=== PATIENT | female | born 1995 | race Caucasian/White ===

== ENCOUNTER 2025-04-27 09:22 | Emergency (ER) | payer BC, SELFPAY ==
--- OUTSIDE RECORDS SUMMARY | 2025-03-11 08:00 | XMS_ITS | Encounter Summary ---
Author Organization [facility] Address [address] [place] [address] Care Team Providers Care Machine Molder Name Role Phone Melissa Cain Primary Care Provider [phone] Reason for Visit * Diagnostic Imaging (Routine) - Closed Specialty Diagnoses / Procedures Referred By Contact Referred To Contact Obstetrics and Gynecology Diagnoses First trimester Procedures US Ob Transvaginal Marce Huizar MD [address] [address] Phone: tel: fax: [facility] [address] [address] Phone: tel: fax: Referral ID Status Reason Start Date Expiration Date Visits Re quested Visits Authorized [id number] Closed 03/07/2025 06/06/2026 1 1 Encounter Details Date Type Department Care Team (Latest Contact Info) Description 03/11/2025 8:00 AM EDT Ancillary Procedure [facility] [address] [address] First trimester Social History Tobacco Use Types Packs/Day Years Used Date Smoking Tobacco: Never Smokeless Tobacco: Never Alcohol Use Standard Drinks/Week Comments Not Currently 0 (1 standard drink = 0.6 oz pur e alcohol) Estimated Date of Delivery Comme nts Yes 10/15/2025 Based on last me nstrual period of 01/08/2025 Sex and Gender Information Value Date Recorded Sex Assigned at Not on file Legal Sex Female 3:02 PM EDT Gender Identity Not on file Sexual Orientation Not on file documented as of this encounter Plan of Treatment Not on file documented as of this encounter Procedures Procedure Name Priority Date/Time Associated Diagnosis Comments US OB TRANSVAGINAL Routine 03/11/2025 8: 13 AM EDT First trimester documented in this encounter Results * US Ob Transvaginal (03/11/2025 8:13 AM EDT) Anatomical Region Laterality Modality Body Ultrasound 03/11/2025 8:58 AM EDT Narrative 03/11/2025 4:50 PM EDT PAT NAME: MIRTHA REYES MED REC#: [id number] DA: [id number] PAT GEND: F PAT TYPE: O EXAM VALERIE: [id number] REF PHYS ALENA MARCE Indication ======== Dating Comparison Studies There are no relevant prior studies to which this study is being compared Method ======= Voluson E6, Transvaginal ultrasound examination. View: Adequate view ========= [place] . Number of fetuses: 1 Single intrauterine present Dating ====== Method of dating: based on the LMP LMP on: 01/08/2025 GA by LMP 8 w + 6 d JEFFREY by LMP: 10/15/2025 Ultrasound examination on: 03/11/2025 GA by U/S based upon: CRL GA by U/S 8 w + 6 d JEFFREY by U/S: 10/15/2025 Assigned: based on the LMP, selected on 03/11/2025 Assigned GA 8 w + 6 d Assigned JEFFREY: 10/15/2025 length 280 d Biometry Standard FHR 184 bpm CRL 22.1 mm 8w 6d 65% [place] General Evaluation Cardiac activity present. Placenta Too early to evaluate. Amniotic fluid normal. [id number] TATA. Maternal Structures Uterus / Cervix Uterus: Visualized Cervix: Visualized Ovaries / Tubes / Adnexa Rt ovary: Visualized Rt ovary D1 21.9 mm Rt ovary D2 19.2 mm Rt ovary D3 15.2 mm Rt ovary Vol 3.3 cm Rt ovarian corpus luteum: visualized Lt ovary: Visualized Lt ovary D1 21.6 mm Lt ovary D2 10.8 mm Lt ovary D3 15.00 mm Lt ovary Vol 1.8 cm Impression ========= Single viable intrauterine with normal cardiac activity and biometry consistent with clinical dates Maintenance Shop Clerk: Kinga Villatoro RDMS Physician: Marce Huizar MD, FACOG Electronically signed by: Marce Huizar MD, FACOG at: 16:50 Procedure Note Marce Huizar MD - 03/11/2025 PAT NAME: MIRTHA REYES MED REC#: [id number] DA: [id number] PAT GEND: F PAT TYPE: O EXAM VALERIE: [id number] REF PHYS MARCE HUIZAR Indication ======== Dating Comparison Studies There are no relevant prior studies to which this study is beingcompared Method ======= Voluson E6, Transvaginal ultrasound examination. View: Adequate view ========= [place] . Number of fetuses: 1 Single intrauterine present Dating ====== Method of dating:based on the LMP LMP on:01/08/2025 GA by LMP8 w + 6 d JEFFREY by LMP:10/15/2025 Ultrasound examination on:03/11/2025 GA by U/S based upon:CRL GA by U/S8 w + 6 d JEFFREY by U/S:10/15/2025 Assigned:based on the LMP, selected on 03/11/2025 Assigned GA8 w + 6 d Assigned JEFFREY:10/15/2025 [id number] d Biometry Standard GKS871 bpm CRL22.1 mm 8w 6d 65% [place] General Evaluation Cardiac activity present. Placenta Too early to evaluate. Amniotic fluid normal. [id number] TATA. Maternal Structures Uterus / Cervix Uterus:Visualized Cervix:Visualized Ovaries / Tubes / Adnexa Rt ovary:Visualized Rt ovary D121.9 mm Rt ovary D219.2 mm Rt ovary D315.2 mm Rt ovary Vol3.3 cm Rt ovarian corpus luteum:visualized Lt ovary:Visualized Lt ovary D121.6 mm Lt ovary D210.8 mm Lt ovary D315.00 mm Lt ovary Vol1.8 cm Impression ========= Single viable intrauterine with normal cardiac activity andbiometry consistent with clinical dates Maintenance Shop Clerk: Kinga Villatoro RDNM Physician: Marce Huizar MD, FACOG Electronically signed by: Marce Huizar MD, FACOG at: 6:50 us Marce Huizar MD IMG US ORDERABLES Fin al Result documented in this encounter Visit Diagnoses Diagnosis First trimester state, incidental documented in this encounter Care Teams Machine Molder Relationship Specialty Start Date End Date Melissa Cain PA [address] [place] [address] DR [place], [place] [address] PCP - General Family Medicine 12/10/18 documented as of this encounter
--- OUTSIDE RECORDS SUMMARY | 2025-03-11 08:30 | XMS_ITS | Encounter Summary ---
Author Organization [facility] Address [address] [place] [address] Care Team Providers Care Veterinary Practitioner Name Role Phone Melissa Cain Primary Care Provider Reason for Visit * Reason Comments Initial Visit Encounter Details Date Type Department Care Team (Late st Contact Info) Description 03/11/2025 8:30 AM EDT Initial [facility] [address] [id number] Marce Huizar MD [address] [place] [address] GA: 8w6d Social History Tobacco Use Types Packs/Day Years Used Date Smoking Tobacco: Never Smokeless Tobacco: Never Tobacco Cessation:Counseling Given: Not Answered Alcohol Use Standard Drinks/Week Comments Not Currently [...] on file documented as of this encounter Last Filed Vital Signs Vital Sign Reading Time Taken Comments Blood Pressure 112/62 03/11/2025 8:43 AM EDT Pulse - - Temperature - - Respiratory Rate - - Oxygen Saturation - - Inhaled Oxygen Concentration - - Weight 104 kg (229 lb 3.2 oz) 03/11/2025 8:43 AM EDT Height - - Body Mass Index 39.34 12/10/2018 3:09 PM EDT documented in this encounter Progress Notes * Marce Huizar MD - 03/11/2025 8:30 AM EDT Images from the original note were not included. Initial ob visit CC- Here for care of Mirtha Soriano is a 29 y.o. female, , who presents for her first obstetrical visit. Patient's last menstrual period was 01/08/2025.. Her JEFFREY is 10/15/2025, by Last Menstrual Period. Current GA is 8w6d. Initial positive test date : 02/08/25, UPT Her periods are every 28 days. Prior obstetric issues: N/A Patient's past medical history is significant for: none. Family history of genetic issues (includes FOB): unknown Prior infections concerning in (Rash, fever in last 2 weeks): No Varicella Hx - vaccinated Prior testing for Cystic Fibrosis Carrier or Sickle Cell Trait- no Prepregnancy BMI - Body mass index is 39.34 kg/m??. History of STD: no Hx of HSV for patient or partner: no Ultrasound Today: yes OB History Para Term AB Living 2 1 SAB IAB Ectopic Molar Multiple Live Births # Outcome Date GA Lbr Mukesh/2nd Weight Sex Type Anes PTL Lv 2 Current 1 AB Additional Pertinent History Last Pap : before covid Result: negative HPV: unknown Last Completed Pap Smear This patient has no relevant Health Maintenance data. History of abnormal Pap smear: no Family history of uterine, colon, breast, or ovarian cancer: no Feelings of Anxiety or Depression: no Tobacco Usage?: No Alcohol/Drug Use?: NO Over the age of 35 at delivery: no Genetic Screening: desires to discuss with provider Flu Status: Declines PMH Current Outpatient Medications: GUMMY VITAMIN, Chew 1 each Daily., Disp: , Rfl: History reviewed. No pertinent past medical history. Past Surgical History: Procedure Laterality Date URETHRA SURGERY expanded Review of Systems Review of Systems Constitutional: Negative. HENT: Negative. Eyes: Negative. Respiratory: Negative. Cardiovascular: Negative. Gastrointestinal: Negative. Endocrine: Negative. Genitourinary: Negative. Musculoskeletal: Negative. Skin: Negative. Allergic/Immunologic: Negative. Neurological: Negative. Hematological: Negative. Psychiatric/Behavioral: Negative. Patient Reports: occasional headaches, low ab cramping and low back pain, severe acid reflux and heart burn. Patient Denies:excessive nausea , excessive vomiting, and vaginal bleeding All systems reviewed and otherwise normal. I have reviewed and agree with the HPI, ROS, and historical information as entered above. Marce Huizar MD BP 112/62 Wt 104 kg (229 lb 3.2 oz) LMP 01/08/2025 BMI 39.34 kg/m?? The additional following portions of the patient's history were reviewed and updated as appropriate: allergies, current medications, past family history, past medical history, past social history, past surgical history, and problem list. Physical Exam General: well developed; well nourished no acute distress mentation appropriate obese - Body mass index is 39.34 kg/m??. Chest/Respiratory: No labored breathing, normal respiratory effort, normal appearance, no respiratory noises noted Heart: not examined Thyroid: normal to inspection and palpation Breasts: Not performed. Abdomen: soft, non-tender; no masses no umbilical or inguinal hernias are present no hepato-splenomegaly Pelvis: Not performed. Assessment and Plan Problem List Items Addressed This Visit 8 weeks gestation of Relevant Orders POC Urinalysis Dipstick (Completed) Obstetric Panel HIV-1 / O / 2 Ag / Antibody Urine Culture - Urine, Urine, Clean Catch Urinalysis With Microscopic - Urine, Clean Catch Chlamydia trachomatis, Neisseria gonorrhoeae, PCR - Urine, Urine, Clean Catch Urine Drug Screen - Urine, Clean Catch Multigravida in first trimester - Primary Relevant Orders POC Urinalysis Dipstick (Completed) Obstetric Panel HIV-1 / O / 2 Ag / Antibody Urine Culture - Urine, Urine, Clean Catch Urinalysis With Microscopic - Urine, Clean Catch Chlamydia trachomatis, Neisseria gonorrhoeae, PCR - Urine, Urine, Clean Catch Urine Drug Screen - Urine, Clean Catch at 8w6d Reviewed routine care with the office and educational materials given Discussed options for genetic testing including first trimester nuchal translucency screen, geneticdisease carrier testing, quadruple screen, and NIPT Discontinue the use of all non-medicinal drugs and chemicals Nausea/Vomiting - she does not desire medications at this time. Discussed conservative ways to helpwith nausea. Patient is on vitamins Activity recommendation : 150 minutes/week of moderate intensity aerobic activity unless we limit for bleeding, hypertension or other complication discussed baby aspirin from 12 weeks to delivery for prevention of preeclampsia Return in about 4 weeks (around 04/08/2025) for Next scheduled follow up. Marce Huizar MD 03/11/2025 documented in this encounter Plan of Treatment Not on file documented as of this encounter Procedures Procedure Name Priority Date/Time Associated Diagnosis Comments CHLAMYDIA TRACHOMATIS, NEISSERIA GONORRHOEAE, PCR Routine 03/11/2025 9:25 AM EDT Multigravida in first trimester 8 weeks gestation of ~MICROSCOPIC EXAMINATION Routine 03/11/2025 9:25 AM EDT HIV-1/O/2 ANTIGEN/ANTIBODY Routine 03/11/2025 9:25 AM EDT Multigravida in first trimester 8 weeks gestation of URINE DRUG SCREEN Routine 03/11/2025 9:2 5 AM EDT Multigravida in first trimester 8 weeks gestation of RUBEOLA ANTIBODY IGG Routine 03/11/2025 9:25 AM EDT OBSTETRIC PANEL Routine 03/11/2025 9:25 AM EDT Multigravida in first trimester 8 weeks gestation of URINALYSIS AND MICROSCOPIC Routine 03/11/2025 9:25 AM EDT Multigravida in first trimester 8 weeks gestation of URINE CULTURE Routine 03/11/2025 9:25 AM EDT Multigravida in first trimester 8 weeks gestation of POCT URINALYSIS DIPSTICK, MANUAL Routine 03/11/2025 8:59 AM EDT Multigravida in first trimester 8 weeks gestation of documented in this encounter Results * Rubeola Antibody IgG (03/11/2025 9:25 AM EDT) Rubeola IgG 236.0 Immune >16.4 AU/mL [facility] Comment: Negative <13.5 Equivocal 13.5 - 16.4 Positive >16.4 Presence of antibodies to Rubeola is presumptive evidence of immunity except when acute infection is suspected. 03/11/2025 9:25 AM EDT 03/11/2025 Narrative [facility] (AMBULATORY) - 03/12/2025 8:11 AM EDT Performed at: [address] [place] [id number] Rn Anesthetist: Nitin Lind PhD, Phone: [phone] Marce Huizar MD LAB BLOOD ORDERABLES Final Result [facility] (AMBULATORY) [address] [place] [address], [facility] [address] [place] [address], * (ABNORMAL) Microscopic Examination - (03/11/2025 9:25 AM EDT) Pathologist [facility] WBC, UA 0-2 /HPF [facility] Comment:REFERENCE RANGE: Non e Seen, 0-2 RBC, UA 0-2 /HPF [facility] Comment:REFERENCE RANGE: Non e Seen, 0-2 Epithelial Cells (non renal) 3-6(A) /HPF [facility] Comment:REFERENCE RANGE: Non e Seen, 0-2 Cast Type Comment [facility] Comment:HYALINE CASTS, UA No ne Seen /LPF None Seen N Bacteria, UA Comment None Seen /HPF [facility] Comment:None Seen 03/11/2025 9:25 AM EDT 03/11/2025 Narrative [facility] ([facility]) - 03/12/2025 3:35 AM EDT Performed at: [address] [place] [id number] Rn Anesthetist: Maged Evangelista MD, Phone: [phone] us Marce Huizar MD URINE ORDERABLES Lindsay clarke Result [facility] (AMBULATORY) [address] [place] [address], [place] [phone] [facility] [address] [place] [address], [place] [phone] * Urine Drug Screen - Urine, Clean Catch (03/11/2025 9:25 AM EDT) Pathologist [facility] Amphetamine, Urine Qual Negative Cutoff=10 00 ng/mL [facility] Barbiturates Screen, Urine Negative Cutoff=20 0 ng/mL [facility] Benzodiazepine Screen, Urine Negative Cutoff=20 0 ng/mL [facility] THC Screen, Urine Negative Cutoff=20 ng/mL [facility] Cocaine Screen, Urine Negative Cutoff=30 0 ng/mL [facility] Opiate Screen, Urine Negative Cutoff=30 0 ng/mL [facility] Comment:Opiate test includes Codeine, Morphine, Hydromorphone, Hydrocodone. Oxycodone/Oxymorph one, Urine Negative Cutoff=10 0 ng/mL [facility] Comment:Test includes Oxycod one and Oxymorphone Phencyclidine (PCP), Urine Negative Cutoff=25 ng/mL [facility] Methadone Screen, Urine Negative Cutoff=30 0 ng/mL [facility] Propoxyphene Screen Negative Cutoff=30 0 ng/mL [facility] Creatinine, Urine 146.9 20.0 - 300.0 mg/dL [facility] pH, UA 6.1 4.5 - 8.9 [facility] Please note Comment [facility] Comment: This assay provides a preliminary unconfirmed analytical test result that may be suitable for clinical management of patients in certain situations. Drug-test results should be interpreted in the context of clinical information. Patient metabolic variables, specific drug chemistry, and specimen characteristics can affect test outcome. Technical consultation is available if a test result is inconsistent with an expected outcome. Email: [email or web address] Urine Urine specimen obtained by clean catch procedure / Unknown 03/11/2025 9:25 AM EDT 03/11/2025 Narrative [facility] (AMBULATORY) - 03/12/2025 8:35 PM EDT Performed at: [place] [address] [place], [place] [id number] Rn Anesthetist: Komal Arceo PhD, Phone: [phone] Marce Huizar MD URINE ORDERABLES Lindsay l Result Performing Organization Address [facility]/ZIP Co de Phone Number [facility] [address] [place] [address], [facility] [address] [place] [address], * Chlamydia trachomatis, Neisseria gonorrhoeae, PCR - Urine, Urine, Clean Catch (03/11/2025 9:25 AM EDT) [facility] Chlamydia trachomatis, BILLIE Negative Negative [facility] Neisseria gonorrhoeae, BILLIE Negative Negative [facility] Urine Urine specimen obtained by clean catch procedure / Unknown 03/11/2025 9:25 AM EDT 03/11/2025 Comment: CD- [id number] [facility] - 03/13/2025 8:11 AM EDT Performed at: [address] [place] [id number] Rn Anesthetist: Erum Montes De Oca MD, Phone: [phone] Marce Huizar MD MICROBIOLOGY - GENERA L ORDERABLES Final Result Performing Organization Address [facility] Co de Phone Number [facility] [address] [place] [address], [place] [phone] [facility] [address] [place] [address], [place] [phone] * (ABNORMAL) Urinalysis With Microscopic - Urine, Clean Catch (03/11/2025 9:25 AM EDT) Pathologist [facility] Specific [place], UA 1.021 1.005 - 1.030 [facility] pH, UA 6.5 5.0 - 8.0 [facility] Color, UA Yellow [facility] Comment:REFERENCE RANGE: Yel low, Straw Appearance, UA Clear Clear [facility] Leukocytes, UA Trace(A) Negative [facility] Protein Negative Negative [facility] Glucose, UA Negative Negative [facility] Ketones Negative Negative [facility] Blood, UA Negative Negative [facility] Bilirubin, UA Negative Negative [facility] Urobilinogen, UA Comment [facility] Comment: 0.2 E.U./dL REFERENCE RANGE: 0.2 - 1.0 E.U./dL Nitrite, UA Negative Negative [facility] Urine Urine specimen obtained by clean catch procedure / Unknown 03/11/2025 9:25 AM EDT 03/11/2025 Narrative [facility] ([facility]) - 03/12/2025 3:35 AM EDT Performed at: [address] [place] [id number] Rn Anesthetist: Maged Evangelista MD, Phone: [phone] Marce Huizar MD URINE ORDERABLES Lindsay l Result [facility] (AMBULATORY) [address] [place] [address], [facility] [address] [place] [address], [place] [phone] * Urine Culture - Urine, Urine, Clean Catch (03/11/2025 9:25 AM EDT) [facility] Urine Culture Final report [facility] Result 1 No growth [facility] Urine Urine specimen obtained by clean catch procedure / Unknown 03/11/2025 9:25 AM EDT 03/11/2025 Comment:MATHIEU CD- [id number] Narrative [facility] ([facility]) - 03/13/2025 3:35 AM EDT Performed at: [address] [place] [id number] Rn Anesthetist: Nitin Lind PhD, Phone: [phone] Marce Huizar MD MICROBIOLOGY - GENERA L ORDERABLES Final Result [facility] (AMBULATORY) [address] [place] [address], [place] [phone] [facility] [address] [place] [address], [place] [phone] * HIV-1 / O / 2 Ag / Antibody (03/11/2025 9:25 AM EDT) [facility] HIV Screen 4th Gen w/RFX (Reference) Non Reactive Non Reactive [facility] Comment: HIV-1/HIV-2 antibodies and HIV-1 p24 antigen were NOT detected. There is no laboratory evidence of HIV infection. HIV Negative Blood 03/11/2025 9:25 AM EDT 03/11/2025 Narrative [facility] - 03/12/2025 7:09 AM EDT Performed at: [facility] [address] [place] [id number] Rn Anesthetist: Nitin Lind PhD, Phone: [phone] Marce Huizar MD LAB BLOOD ORDERABLES Final Result Performing Organization Address City/[facility] Co de Phone Number [facility] (AMBULATORY) [address] [place] [address], [place] [phone] [facility] [address] [place] [address], [place] [phone] * (ABNORMAL) Obstetric Panel (03/11/2025 9:25 AM EDT) [facility] Hepatitis B Surface Ag Negative Negative [facility] Hep C Virus Ab Non Reactive Non Reactive [facility] Comment: HCV antibody alone does not differentiate between previously resolved infection and active infection. Equivocal and Reactive HCV antibody results should be followed up with an HCV RNA test to support the diagnosis of active HCV infection. RPR Non Reactive Non Reactive [facility] Rubella Antibodies, IgG 3.77 Immune >0.99 index [facility] Comment: Non-immune <0.90 Equivocal 0.90 - 0.99 Immune >0.99 ABO Type O [facility] Rh Factor Negative [facility] Comment: Please note: Prior records for this patient's ABO / Rh type are not available for additional verification. Antibody Screen Negative Negative [facility] WBC 10.9(H) 3.4 - 10.8 x10E3/uL [facility] RBC 4.26 3.77 - 5.28 x10E6/uL [facility] Hemoglobin 13.3 11.1 - 15.9 g/dL [facility] Hematocrit 40.4 34.0 - 46.6 % [facility] MCV 95 79 - 97 fL [facility] MCH 31.2 26.6 - 33.0 pg [facility] MCHC 32.9 31.5 - 35.7 g/dL [facility] RDW 12.4 11.7 - 15.4 % [facility] Platelets 284 150 - 450 x10E3/uL [facility] Neutrophil Rel % 67 Not Estab. % [facility] Lymphocyte Rel % 23 Not Estab. % [facility] Monocyte Rel % 7 Not Estab. % [facility] Eosinophil Rel % 1 Not Estab. % [facility] Basophil Rel % 1 Not Estab. % [facility] Neutrophils Absolute 7.4(H) 1.4 - 7.0 x10E3/uL [facility] Lymphocytes Absolute 2.5 0.7 - 3.1 x10E3/uL [facility] Monocytes Absolute 0.7 0.1 - 0.9 x10E3/uL [facility] Eosinophils Absolute 0.1 0.0 - 0.4 x10E3/uL [facility] Basophils Absolute 0.1 0.0 - 0.2 x10E3/uL [facility] Immature Granulocyte Rel % 1 Not Estab. % [facility] Immature Grans Absolute 0.1 0.0 - 0.1 x10E3/uL [facility] Blood 03/11/2025 9:25 AM EDT 03/11/2025 Narrative [facility] ([facility]) - 03/12/2025 8:11 AM EDT Performed at: [facility] [id number] Rn Anesthetist: Nitin Lind PhD, Phone: [phone] Marce Huizar MD LAB BLOOD ORDERABLES Final Result [facility] ([facility]) [address] [place] [address], [place] [phone] [facility] [address] [place] [address], [place] [phone] * POC Urinalysis Dipstick (03/11/2025 8:59 AM EDT) Color Yellow Yellow, Straw, Dark Yellow, Rufina [facility] Clarity, UA Clear Clear [facility] Glucose, UA Negative Negative mg/dL [facility] Bilirubin Negative Negative [facility] Ketones, UA Negative Negative [facility] Specific [place] 1.020 1.005 - 1.030 [facility] Blood, UA Negative Negative [facility] pH, Urine 6.0 5.0 - 8.0 [facility] Protein, POC Negative Negative mg/dL [facility] Urobilinogen, UA 0.2 E.U./dL Normal, 0.2 E.U./dL [facility] Leukocytes Negative Negative [facility] Nitrite, UA Negative Negative [facility] Urine 03/11/2025 8:59 AM EDT Marce Huizar MD POINT OF CARE TEST OR DERABLES Final Result [facility]
[address] [place] [address], [place] [phone] documented in this encounter Visit Diagnoses Diagnosis Multigravida in first trimester- Primary 8 weeks gestation of documented in this encounter Care Teams Veterinary Practitioner Relationship Specialty Start Date End Date Melissa Cain PA [facility] [address] PCP - General Family Medicine 12/10/18 documented as of this encounter
--- OUTSIDE RECORDS SUMMARY | 2025-04-02 15:00 | XMS_ITS | Encounter Summary ---
Author Organization [facility] Address [address] [place] [address] Care Team Providers Care Clinique Counter Manager Name Role Phone Pcp, No Primary Care Provider Unavailabl e Reason for Referral * Imaging (Routine) - Authorized Specialty Diagnoses / Procedures Referred By Scarlett mejia Referred To Contact Diagnoses , unspecified gestational age Procedures OB US 14+ Weeks Anatomy Scan John Wilkes MD [address] [place] [address] Phone: tel: fax: Referral ID Status Reason Start Date Expiration Date V isits Requested Visits Authorized [id number] Authorized 04/02/2025 10/02/2026 1 1 * Imaging (Routine) - Closed Specialty Diagnoses / Procedures Referred By Scarlett mejia Referred To Contact Diagnoses , unspecified gestational age Procedures OB US Nuchal Translucency John Wilkes MD [address] [place] [address] Phone: tel: fax: Referral ID Status Reason Start Date Expiration Date Visits Re quested Visits Authorized [id number] Closed 04/02/2025 10/02/2026 1 1 Reason for Visit * Reason Comments Initial Visit [facility] from [facility]. Had initial there. 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 Doing well, feels good, mood is good. Has had labs. Desires NIPT test, we can do that today. Encounter Details Date Type Department Care Team (Late st Contact Info) Description 04/02/2025 3:00 PM EDT Initial Obstetrics & Gynecology [address] [place] [address] John Wilkse MD [address] [place] [address] GA: 12w0d Social History Tobacco Use Types Packs/Day Years Used Date Smoking Tobacco: Never Smokeless Tobacco: Never Tobacco Cessation:Counseling Given: Not Answered Alcohol Use Standard Drinks/Week Comments Not Currently 1 (1 standard drink = 0.6 oz pur e alcohol) PHQ-2 Answer Date Recorded Patient Health Questionnaire-2 Score 0 04/02/2025 PHQ-9 Answer Date Recorded Patient Health Questionnaire-9 Score 0 04/02/2025 Estimated Date of Delivery Comme nts Yes 10/15/2025 Based on last me nstrual period of 01/08/2025 (Exact Date) Sex and Gender Information Value Date Recorded Sex Assigned at Not on file Legal Sex Female 3:16 PM EDT Gender Identity Not on file Sexual Orientation Not on file documented as of this encounter Last Filed Vital Signs Vital Sign Reading Time Taken Comments Blood Pressure 106/75 04/02/2025 3:24 PM EDT Pulse 93 04/02/2025 3:24 PM EDT Temperature 36.8 C (98.2 F) 04/02/2025 3:24 PM EDT Respiratory Rate 16 04/02/2025 3:24 PM EDT Oxygen Saturation 98% 04/02/2025 3:24 PM EDT Inhaled Oxygen Concentration - - Weight 98.2 kg (216 lb 7.9 oz) 04/02/2025 3:24 P M EDT Height 162.6 cm (5' 4 ) 04/02/2025 3:24 PM EDT Body Mass Index 37.16 04/02/2025 3:24 PM EDT documented in this encounter Functional Status * Over the past 2 weeks, how often have you been bothered by any of the following problems? Question Answer Date of Assessment Author Little interest or pleasure in doing things Not at all 04/02/2025 3:21 PM EDT Vj Hernandez Feeling down, depressed, or hopeless Not at all 04/02/2025 3:21 PM EDT Vj Hernandez Patient Health Questionnaire -2 Score 0 04/02/2025 3:21 PM EDT Vj Hernandez * Question Answer Date of Assessment Author Trouble falling or staying a sleep, or sleeping too much Not at all 04/02/2025 3:21 PM EDT Vj Hernandez Feeling tired or having monique le energy Not at all 04/02/2025 3:21 PM EDT Vj Hernandez Poor appetite or overeating Not at all 04/02/2025 3: 21 PM EDT Vj Hernandez Feeling bad about yourself - or that you are a failure or have let yourself or your family down Not at all 04/02/2025 3:21 PM EDT Eduardo Hernandez Trouble concentrating on thi ngs, such as reading the newspaper or watching television Not at all 04/02/2025 3:21 PM EDT Vj Hernandez Moving or speaking so slowly that other people could have noticed? Or the opposite - being so fidgety or restless that you have been moving around a lot more than usual. Not at all 04/02/2025 3:21 PM EDT Vj Hernandez Thoughts that you would be b narayan off or hurting yourself in some way Not at all 04/02/2025 3:21 PM EDT Vj Hernandez Patient Health Questionnaire -9 Score 0 04/02/2025 3:21 PM EDT Vj Hernandez * How difficult have these problems made it for you to do your work, take care of things at home, or get along with other people? Answer Date of Assessment Author Not difficult at all 04/02/2025 3:21 PM EDT Vj Segura documented as of this encounter Miscellaneous Notes * Progress Notes - John Wilkes MD - 04/02/2025 3:00 PM EDT Obstetrics Initial Visit Chief Complaint Patient presents with Initial Visit [facility]ERSON from [facility]. Had initial there. Works for [employer] at the [employer] office, would prefer to come here. Doing well, feels good, mood is good. Has had labs. Desires NIPT test, we can do that today. Subjective Mirtha Soriano is a 29 y.o. at 12w0d (JEFFREY 10/15/25 by LMP=8w OSH US) who presents for an initial visit/[facility]ERSON from [facility]. This is planned and is desired. Denies abdominal pain, vaginal bleeding, or leaking of fluid. Denies nausea or vomiting. Having worsening GERD -- used to take omeprazole. Tums not helping. Reports she was told to start bASA at 12 weeks by [facility] provider for her freckles & family h/o red hair. Obstetric History: OB History Para Term AB Living 2 1 SAB IAB Ectopic Multiple Live Births # Outcome Date GA Lbr Mukesh/2nd Weight Sex Type Anes PTL Lv 2 Current 1 AB Gynecology History Denies history of STI including chlamydia, gonorrhea, herpes, syphilis., Last pap smear >5 years(no result available). Past Medical History: Past Medical History[1] Past Surgical History: Surgical History[2] Family History: Family History[3] Social History: Social History[4] Review of Systems Review of Systems Constitutional: Negative. HENT: Negative. Eyes: Negative. Respiratory: Negative. Cardiovascular: Negative. Gastrointestinal: Negative for abdominal pain, constipation, diarrhea, nausea and vomiting. Endocrine: Negative. Genitourinary: Negative for difficulty urinating, dysuria, menstrual problem, pelvic pain, vaginal bleeding, vaginal discharge and vaginal pain. Neurological: Negative. Psychiatric/Behavioral: Negative. Objective Physical Exam Weight: 98.2 kg (216 lb 7.9 oz) Pre- Weight: Pregravid weight not on file Expected Total Weight Gain: Could not be calculated Pregravid BMI: Could not be calculated BP: 106/75 Heart Rate: 164 Physical Exam Constitutional: General: She is not in acute distress. Appearance: Normal appearance. She is not ill-appearing. Genitourinary: Genitourinary Comments: Deferred. HENT: Head: Normocephalic and atraumatic. Nose: Nose normal. Mouth/Throat: Mouth: Mucous membranes are moist. Eyes: Extraocular Movements: Extraocular movements intact. Cardiovascular: Rate and Rhythm: Normal rate. Pulmonary: Effort: Pulmonary effort is normal. No respiratory distress. Abdominal: General: There is no distension. Palpations: Abdomen is soft. Musculoskeletal: General: Normal range of motion. Cervical back: Normal range of motion. Neurological: General: No focal deficit present. Mental Status: She is alert and oriented to person, place, and time. Skin: General: Skin is warm and dry. Psychiatric: Mood and Affect: Mood normal. Behavior: Behavior normal. Vitals and nursing note reviewed. Imaging: Bedside transabdominal ultrasound done: SIUP with FHR 164 bpm. Labs: PNL reviewed in Care Everywhere & imported into Results Console -- missing gonorrhea, chlamydiascreen + urine culture - obtained today with pt consent. Assessment/Plan 29 y.o. at 12w0d dated by LMP=8w US for a new OB visit. Assessment & Plan 12 weeks gestation of , unspecified gestational age Orders: OB US < 14 Weeks Early; Future PANORAMA TEST [facility] Urine Culture Neisseria gonorrhea DNA by PCR Chlamydia trachomatis DNA by PCR OB US Nuchal Translucency; Future OB US 14+ Weeks Anatomy Scan; Future Gastroesophageal reflux disease, unspecified whether esophagitis present Orders: pantoprazole (Protonix) 40 MG EC tablet; Take 1 tablet by mouth daily before breakfast. Do not crush, chew, or split. Obesity (BMI 30-39.9) labs reviewed in Care Everywhere: O NEG // Rubella Immune // otherwise WNL Urine G/C, Urine culture today. NEEDS PAP Ultrasounds: Dated by LMP=8w US. Discussed NT US - pt desires, ordered. Anatomy US at 20w Genetic Screening: Patient desires NIPT, drawn today. Immunizations: Discuss Tdap, flu, RSV recommendations next visit! Continue vitamins. Rx Pantoprazole for persistent GERD. New OB backpack & education given. Reviewed precautions to call or present for evaluation including: refractory nausea/vomiting, persistent severe abdominal pain, bright red vaginal bleeding similar to a period, or fever >101F. NT US ordered. Only 1 known risk factor for pre-eclampsia (BMI 30-39). bASA not strictly indicated for prevention of pre-E in pts with only single moderate RF for pre-E -- however, discussed R/B with pt. OK to start if she desires. RTC: 2 weeks for NT US screening + PNC A total of 41 minutes was spent on this visit with at least more than 50% of the encounter spent incounseling and/or coordinating care including reviewing previous notes, counseling the patient on their identified issues as indicated in the note, discussing previous and/or ordered tests or imaging, prescribing/refilling medications, and documenting the findings in this note, as well as laying out a specific plan of action for this patient. John Wilkes MD Obstetrics & Gynecology [1] Past Medical History: Diagnosis Date Migraine [2] History reviewed. No pertinent surgical history. [3] Family History Problem Relation Name Age of Onset Arthritis Father Si Christie 50 - 59 Diabetes Maternal Grandfather Si Christie [4] Social History Socioeconomic History Marital status: Single Years of education: [employer] office [employer]. Tobacco Use Smoking status: Never Smokeless tobacco: Never Substance and Sexual Activity Alcohol use: Not Currently Alcohol/week: 1.0 standard drink of alcohol Types: 1 Glasses of wine per week Drug use: Never Sexual activity: Not Currently Partners: Male control/protection: None documented in this encounter Plan of Treatment Upcoming Encounters Date Type Department Care Team (Late st Contact Info) Description 05/05/2025 9:20 AM EDT Routine Obstetrics & Gynecology [address] [place] [address] John Wilkes MD [address] [place] [address] 05/28/2025 1:40 PM EST Routine Obstetrics & Gynecology [address] [place] [address] John Wilkes MD [address] [place] [address] 05/28/2025 1:50 PM EST Appointment [facility] Ultrasound [address] [place] [address] Pending Results Name Type Priority Associated Diagnoses Date /Time PANORAMA TEST Lab Routine , unspecified gestational age 0904/02/2025 4:22 PM EDT [facility] Lab Routine , unspecified gestational age 0904/02/2025 4:22 PM EDT Scheduled Orders Name Type Priority Associated Diagnoses Orde r Schedule OB US 14+ Weeks Anatomy Scan Imaging Routine , unspecified gestational age Expected: 05/30/2025 (Approximate), Expires: 10/04/2026 documented as of this encounter Procedures Procedure Name Priority Date/Time Associated Diagnosis Comments CHLAMYDIA TRACHOMATIS DNA BY PCR Routine 04/02/2025 3:52 PM EDT , unspecified gestational age NEISSERIA GONORRHEA DNA BY PCR Routine 04/02/2025 3:52 PM EDT , unspecified gestational age URINE CULTURE Routine 04/02/2025 3:52 PM EDT , unspecified gestational age HIV 1/2 ANTIBODY/ANTIGEN SCREEN WITH REFLEX TO HIV I/II DIFFERENTIATION Routine 03/11/2025 HEPATITIS C ANTIBODY W/REFLEX TO HCV QUANT PCR Routine 03/11/2025 DRUG ABUSE SCREEN, URINE Routine 03/11/2025 ABO/RH Routine 03/11/2025 RUBELLA ANTIBODY IGG Routine 03/11/2025 RPR WITH REFLEX TO TITER (THOSE WITH KNOWN SYPHILIS) Routine 03/11/2025 HEPATITIS B SURFACE ANTIGEN Routine 03/11/2025 PLATELET COUNT, BLOOD Routine 03/11/2025 HEMOGLOBIN Routine 03/11/2025 HEMATOCRIT, BLOOD Routine 03/11/2025 ANTIBODY SCREEN Routine 03/11/2025 documented in this encounter Results * OB US Nuchal Translucency (04/14/2025 11:31 AM EDT) Anatomical Region Laterality Modality Ultrasound 04/14/2025 11:1 2 AM EDT Impressions 04/16/2025 8:41 AM EDT The OB Ultrasound you requested has been resulted. Please navigate to the Imaging tab in [email or web address] for review. This message has been generated by the interface. Narrative Procedure Note Frantz Willson MD - 04/16/2025 IMPRESSION: The OB Ultrasound you requested has been resulted. Please navigate to theImaging tab in [email or web address] for review. This message has been generated by theinterface. us John Wilkes MD IMG OB US PROCEDURES Final Res ult * Chlamydia trachomatis DNA by PCR (04/02/2025 3:52 PM EDT) Chlamydia trachomatis DNA PCR Result Not Detected Not Detected 04/03/2025 4:21 PM EDT [facility] Urine Urine specimen obtained by clean catch procedure / Unknown Non-blood Collection / Unknown 04/02/2025 3:52 PM EDT 04/02/2025 6:47 PM EDT Narrative [facility] - 04/03/2025 4:21 PM EDT This test is performed by the Sennari m2000 instrument for Real Time PCR C. trachomatis and N. gonorrhea. This test is FDA approved for use with endocervical, vaginal, and urine specimens. This test is used for clinical purposes. It should not be regarded as invesigational or for research. The [facility] Clinical Microbiology Laboratory is certified under the Clinical Laboratory Improvement Amendments of 1988 (CLIA-88) as qualified to perform high complexity clinical laboratory testing. us John Wilkes MD LAB MICROBIOLOGY - GENERAL ORD ERABLES Final Result Performing Organization Address City/[facility]/ZIP Co de Phone Number [facility] [address] [place] [address] * Neisseria gonorrhea DNA by PCR (04/02/2025 3:52 PM EDT) Neisseria gonorrhea DNA PCR Result Not Detected Not Detected. 04/03/2025 4:21 PM EDT [facility] Urine Urine specimen obtained by clean catch procedure / Unknown Non-blood Collection / Unknown 04/02/2025 3:52 PM EDT 04/02/2025 6:47 PM EDT Narrative [facility] - 04/03/2025 4:21 PM EDT This test is performed by the Glisten instrument for Real Time PCR C. trachomatis and N. gonorrhea. This test is FDA approved for use with endocervical, vaginal, and urine specimens. This test is used for clinical purposes. It should not be regarded as invesigational or for research. The [facility] Clinical Microbiology Laboratory is certified under the Clinical Laboratory Improvement Amendments of 1988 (CLIA-88) as qualified to perform high complexity clinical laboratory testing. us John Wilkes MD LAB MICROBIOLOGY - GENERAL ORD ERABLES Final Result Performing Organization Address [facility] Co de Phone Number [facility] [address] [place] [address] * Urine Culture (04/02/2025 3:52 PM EDT) Culture <10,000 CFU/mL Mixed urogenital, fecal, or skin pita present. 04/03/2025 2:07 PM EDT [facility] Urine Urine specimen obtained by clean catch procedure / Unknown Non-blood Collection / Unknown 04/02/2025 3:52 PM EDT 04/02/2025 6:48 PM EDT us John Wilkes MD LAB MICROBIOLOGY - GENERAL ORD ERABLES Final Result Performing Organization Address City/[facility]/ZIP Co de Phone Number [facility] [address] [place] [address] * OB US < 14 Weeks Early (04/02/2025 3:28 PM EDT) Anatomical Region Laterality Modality Body Ultrasound 04/07/2025 12:1 2 PM EDT Impressions 04/07/2025 12:16 PM EDT The OB Ultrasound you requested has been resulted. Please navigate to the Imaging tab in [email or web address] for review. This message has been generated by the interface. Narrative Procedure Note John Wilkes MD - 04/07/2025 IMPRESSION: The OB Ultrasound you requested has been resulted. Please navigate to theImaging tab in [email or web address] for review. This message has been generated by theinterface. Result [facility] John Wilkes MD IMG OB US PROCEDURES Final Res ult * Drug Abuse Screen, Urine (03/11/2025) Pathologist [facility] Amphetamine Screen Urine Negative Cutoff: 500 ng/mL Urine Urine specimen obtained by clean catch procedure / Unknown Result [facility] Provider LAB URINE ORDERABLES Final R esult * HIV 1 & 2 Antibody/Antigen Screen (03/11/2025) Pathologist [facility] External HIV 1/2 Ab/Ag None Detected Blood Venous blood specimen / Unknown Result [facility] LAB BLOOD ORDERABLES Final R esult * Rubella Antibody IgG (03/11/2025) Pathologist [facility] External Rubella IGG Quantitation Positive Blood Venous blood specimen / Unknown Result [facility] Provider LAB BLOOD ORDERABLES Final R esult * RPR With Reflex to Titer (Those With Known Syphilis) (03/11/2025) [facility] Rapid Plasma Reagin Nonreactive Non Reactive Blood Venous blood specimen / Unknown us Historical Provider LAB BLOOD ORDERABLES Final R esult * Hepatitis B Surface Antigen (03/11/2025) External Hepatitis B Surface Antigen (HBSAg) non reactive Blood Venous blood specimen / Unknown Result [facility] LAB BLOOD ORDERABLES Final R esult * Hepatitis C Antibody w/Reflex to HCV Quant PCR (03/11/2025) Hepatitis C Antibody Negative Negative Blood Venous blood specimen / Unknown Result [facility] LAB BLOOD ORDERABLES Final R esult * ABO/Rh (03/11/2025) ABO Grouping O External Rh Factor Negative Blood Venous blood specimen / Unknown Result [facility] LAB BLOOD BANK TEST ORDERABL ES Final Result * Platelet Count, Blood (03/11/2025) External Platelet Count (Plt) 284 Blood Venous blood specimen / Unknown Result [facility] LAB BLOOD ORDERABLES Final R esult * Hemoglobin, Blood (03/11/2025) External Hemoglobin (Hgb) 13.30 Blood Venous blood specimen / Unknown Result [facility] LAB BLOOD ORDERABLES Final R esult * Hematocrit, Blood (03/11/2025) External Hematocrit (Hct) 40.4 Blood Venous blood specimen / Unknown Result [facility] LAB BLOOD ORDERABLES Final R esult * Antibody Screen (03/11/2025) External Antibody Screen Negative Blood Venous blood specimen / Unknown Historical Provider LAB BLOOD BANK TEST ORDERABL ES Final Result documented in this encounter Visit Diagnoses Diagnosis 12 weeks gestation of - Primary , unspecified gestational age Gastroesophageal reflux disease, unspecified whether esophagitis present Obesity (BMI 30-39.9) , unspecified gestational age , unspecified gestational age documented in this encounter Additional Health Concerns Assessment Noted Time PHQ-9 Depression Total Score: 0 04/02/20 3:21 PM EDT A fall risk assessment has been complete d for the patient 04/02/2025 3:21 PM EDT A Body Mass Index follow-up plan has been documented for the patient 04/07/2025 12:18 PM EDT documented as of this encounter Care Teams Clinique Counter Manager Relationship Specialty Start Date [place] [address] PCP - General Family Medicine 04/02/25 documented as of this encounter
--- OUTSIDE RECORDS SUMMARY | 2025-04-02 15:30 | XMS_ITS | Encounter Summary ---
Author Organization Healthcare Address [address] [place] [address] Care Team Providers Care Area Field Worker Name Role Phone Pcp, No Primary Care Provider Unavailabl e Encounter Details Date Type Department Care Team (Latest Contact Info) Description 04/02/2025 3:30 PM EDT Ancillary Procedure Obstetrics & Gynecology [address] [place] [address] , unspecified gestational age Social History Tobacco Use Types Packs/Day Years [...] on file documented as of this encounter Functional Status * Over the [...] Vj Segura documented as of this encounter Plan of Treatment Upcoming Encounters Date Type Department Care Team (Late st Contact Info) Description 05/05/2025 9:20 AM EDT Routine Obstetrics & Gynecology [address] [place] [address] John Wilkes MD [address] [place] [address] 05/28/2025 1:40 PM EST Routine Obstetrics & Gynecology [address] [place] [address] John Wilkes MD [address] [place] [address] 05/28/2025 1:50 PM EST Appointment [facility] Ul[facility]ound [address] [place] [address] documented as of this encounter Procedures Procedure Name Priority Date/Time Associated Diagnosis Comments OB US < 14 WEEKS EARLY Routine 04/02/2025 3:28 PM EDT , unspecified gestational age documented in this encounter Results * OB US < 14 Weeks Early (04/02/2025 3:28 PM EDT) Anatomical Region Laterality Modality Body Ultrasound 04/07/2025 12:1 2 PM EDT Impressions 04/07/2025 12:16 PM EDT The OB Ultrasound you requested has been resulted. Please navigate to the Imaging tab in Vayable for review. This message has been generated by the interface. Narrative Procedure Note John Wilkes MD - 04/07/2025 IMPRESSION: The OB Ultrasound you requested has been resulted. Please navigate to theImaging tab in Vayable for review. This message has been generated by theinterface. us John Wilkes MD IMG OB US PROCEDURES Final Res ult documented in this encounter Visit Diagnoses Diagnosis , unspecified gestational age documented in this encounter Additional Health Concerns Assessment Noted Time PHQ-9 Depression Total Score: 0 04/02/20 3:21 PM EDT A fall risk assessment has been complete d for the patient 04/02/2025 3:21 PM EDT A Body Mass Index follow-up plan has been documented for the patient 04/07/2025 12:18 PM EDT documented as of this encounter Care Teams Area Field Worker Relationship Specialty Start Date End Date Pcp, No [address] [place] [address] PCP - General Family Medicine 04/02/25 documented as of this encounter
--- OUTSIDE RECORDS SUMMARY | 2025-04-14 11:08 | XMS_ITS | Encounter Summary ---
Author Organization [facility] Address [address] [place] [address] Care Team Providers Care Orthopedic Coder Name Role Phone Pcp, No Primary Care Provider Unavailabl e Reason for Referral * Imaging (Routine) - Closed Specialty Diagnoses / Procedures Referred By Scarlett mejia Referred To Contact Diagnoses , unspecified gestational age Procedures OB US Nuchal Translucency John Wilkes MD [address] [place] [address] Phone: tel: fax: Referral ID Status Reason Start Date Expiration Date Visits Re quested Visits Authorized [id number] Closed 04/02/2025 10/02/2026 1 1 Reason for Visit * Imaging (Routine) - Closed Specialty Diagnoses / Procedures Referred By Scarlett mejia Referred To Contact Diagnoses , unspecified gestational age Procedures OB US Nuchal Translucency John Wilkes MD [address] [place] [address] Phone: tel: fax: Referral ID Status Reason Start Date Expiration Date Visits Re quested Visits Authorized [id number] Closed 04/02/2025 10/02/2026 1 1 Encounter Details Date Type Department Care Team (Latest Contact Info) Description 04/14/2025 11:08 AM EDT - 04/14/2025 11:59 PM EDT Hospital Encounter [facility] Ul[facility]ound [address] [place] [address] , unspecified gestational age Discharge Disposition: Home or Self Care Social History Tobacco Use Types Packs/Day Years Used Date Smoking Tobacco: Never Smokeless Tobacco: Never Alcohol Use Standard Drinks/Week Comments Not Currently 1 (1 standard drink = 0.6 oz pur e alcohol) PHQ-2 Answer Date Recorded Patient Health Questionnaire-2 Score 0 04/15/2025 PHQ-9 Answer Date Recorded Patient Health Questionnaire-9 [...] pleasure in doing things Not at all 04/15/2025 10:10 AM EDT Khadra yes, Zo Feeling down, depressed, or hopeless Not at all 04/15/2025 10:10 AM EDT Zo Nichols Patient Health Questionnaire-2 Score 0 04/15/2025 10:10 AM EDT Zo Nichols * How difficult have these problems made it for you to do your work, take care of things at home, or get along with other people? Answer Date of Assessment Author Not difficult at all 04/15/2025 10:10 AM EDT Zo Valentine documented as of this encounter Medications at Time of Discharge BABY ASPIRIN PO Take 81 mg by mouth daily. pantoprazole (Protonix) 40 MG EC tabletIndications: Gastroesophageal reflux disease, unspecified whether esophagitis present Take 1 tablet by mouth daily before breakfast. Do not crush, chew, or split. 90 tablet 3 04/02/2025 MV & Min w/FA-DHA ( ADULT GUMMY/DHA/FA PO) Take 1 each by mouth daily. documented as of this encounter Plan of Treatment Upcoming Encounters Date Type Department Care Team (Late st Contact Info) Description 05/05/2025 9:20 AM EDT Routine Obstetrics & Gynecology [address] [place] [address] John Wilkes MD [address] [place] [address] 05/28/2025 1:40 PM EST Routine Obstetrics & Gynecology [address] [place] [address] John Wilkes MD [address] [place] [address] 05/28/2025 1:50 PM EST [facility] [address] [place] [address] documented as of this encounter Procedures Procedure Name Priority Date/Time Associated Diagnosis Comments OB US NUCHAL TRANSLUCENCY Routine 04/14/2025 11:31 AM EDT , unspecified gestational age documented in this encounter Results * OB US Nuchal Translucency (04/14/2025 11:31 AM EDT) Anatomical Region Laterality Modality Ultrasound 04/14/2025 11:1 2 AM EDT Impressions 04/16/2025 8:41 AM EDT The OB Ultrasound you requested has been resulted. Please navigate to the Imaging tab in [employer] for review. This message has been generated by the interface. Narrative Procedure Note Frantz Willson MD - 04/16/2025 IMPRESSION: The OB Ultrasound you requested has been resulted. Please navigate to theImaging tab in [employer] for review. This message has been generated by theinterface. us John Wilkes MD IMG OB US PROCEDURES Final Res ult documented in this encounter Visit Diagnoses Diagnosis , unspecified gestational age documented in this encounter Additional Health Concerns Assessment Noted Time PHQ-9 Depression Total Score: 0 04/02/20 3:21 PM EDT A fall risk assessment has been complete d for the patient 04/14/2025 11:48 AM EDT A Body Mass Index follow-up plan has been documented for the patient 04/15/2025 10:42 AM EDT documented as of this encounter Care Teams Orthopedic Coder Relationship Specialty Start Date End Date Pcp, [place] [address] PCP - General Family Medicine 04/02/25 documented as of this encounter
--- OUTSIDE RECORDS SUMMARY | 2025-04-14 11:20 | XMS_ITS | Encounter Summary ---
Author Organization [facility] Address [address] [place] [address] Care Team Providers Care Truck Leasing Manager Name Role Phone Pcp, No Primary Care Provider Unavailabl e Reason for Visit * Reason Comments Routine Visit 13w5d/RPVPt denie s pain, no VB/LOF, no ctxs/cramping. Pt states yesterday morning after peeing mucous with light pink tint. Encounter Details Date Type Department Care Team (Late st Contact Info) Description 04/14/2025 11:20 AM EDT Routine Obstetrics & Gynecology [address] [place] [address] John Wilkes MD [address] [place] [address] 13 weeks gestation of (Primary Dx); Gastroesophageal reflux disease, unspecified whether esophagitis present; , unspecified gestational age Social History Tobacco [...] Sign Reading Time Taken Comments Blood Pressure 104/74 04/14/2025 11:46 AM EDT Pulse 79 04/14/2025 11:46 AM EDT Temperature 37.2 C (99 F) 04/14/2025 11:46 AM EDT Respiratory Rate - - Oxygen Saturation 97% 04/14/2025 11:46 AM EDT Inhaled Oxygen Concentration - - Weight 104 kg (229 lb 4.5 oz) 04/14/2025 11:46 A M EDT Height 162.6 cm (5' 4 ) 04/14/2025 11:46 AM EDT Body Mass Index 39.36 04/14/2025 11:46 AM EDT documented in this encounter Functional Status [...] Zo Valentine documented as of this encounter Miscellaneous Notes * Assessment & Plan Note - John Wilkes MD - 04/14/2025 11:20 AM EDT Associated Problem(s): 13 weeks gestation of * Assessment & Plan Note - John Wilkes MD - 04/14/2025 11:20 AM EDT Associated Problem(s): Gastroesophageal reflux disease * Assessment & Plan Note - John Wilkes MD - 04/14/2025 11:20 AM EDT Associated Problem(s): * Progress Notes - John Wilkes MD - 04/14/2025 11:20 AM EDT Obstetrics Progress Note Chief Complaint Patient presents with Routine Visit 13w5d/RPV Pt denies pain, no VB/LOF, no ctxs/cramping. Pt states yesterday morning after peeing mucous with light pink tint. Melany Soriano is a 29 y.o. at 13w5d (JEFFREY 10/15/25 by LMP=8w US) who presents for a routine visit. Today, no questions or concerns. Eating & drinking well. No bowel or bladder concerns. She does note a single episode of thick clear mucus yesterday morning on wiping after urination that had a slight pink tinge -- no outright blood noted or spotting/bleeding. Protonix has significantly helped her reflux -- sleeping better without belching/reflux sxs. Denies abdominal pain, vaginal bleeding, or leaking of fluid. Reports baseline normal movement. Prelim US today: CRL c/w prior dating, posterior plac, FHR 153 bpm, NT 2.1 mm, normal uterine artery dopplers is complicated by: Rh negative GERD - Protonix Objective Physical Exam Weight: 104 kg (229 lb 4.5 oz) Expected Total Weight Gain: 5 kg (11 lb)-9 kg (19 lb) Pregravid BMI: 39.29 BP: 104/74 Heart Rate: +US Assessment/Plan 29 y.o. at 13w5d presenting for TORO. Assessment & Plan 13 weeks gestation of Gastroesophageal reflux disease, unspecified whether esophagitis present , unspecified gestational age labs reviewed: O NEG // Rubella Immune // otherwise WNL NEEDS PAP Ultrasounds: Dated by LMP=8w US. NT US today WNL. Anatomy US at 20w Genetic Screening: NIPT done 04/02, pending. Immunizations: Discuss Tdap, flu, RSV recommendations next visit! Continue vitamins. Continue Pantoprazole for persistent GERD. Reviewed precautions to call or present for evaluation including: refractory nausea/vomiting, persistent severe abdominal pain, bright red vaginal bleeding similar to a period, or fever >101F. Only 1 known risk factor for pre-eclampsia (BMI 30-39). bASA not strictly indicated for prevention of pre-E in pts with only single moderate RF for pre-E -- however, discussed R/B with pt. OK to start if she desires. Has started bASA -- continue. Anatomy US at 20w. RTC: 3 weeks for PNC, 7 weeks for PNC + anatomy US A total of 26 minutes was spent on this visit with [...] patient. John Wilkes MD Obstetrics & Gynecology documented in this encounter Plan of Treatment Upcoming Encounters Date Type Department Care Team (Late st Contact Info) Description 05/05/2025 9:20 AM EDT Routine Obstetrics & Gynecology [address] [place] [address] John Wilkes MD [address] [place] [address] 05/28/2025 1:40 PM EST Routine Obstetrics & Gynecology [address] [place] [address] John Wilkes MD [address] [place] [address] 05/28/2025 1:50 PM EST Appointment [facility] [address] [place] [address] documented as of this encounter Visit Diagnoses Diagnosis 13 weeks gestation of - Primary Gastroesophageal reflux disease, unspecified whether esophagitis present , unspecified gestational age documented in this encounter Additional Health Concerns Assessment Noted Time PHQ-9 Depression Total Score: 0 04/02/20 3:21 PM EDT A fall risk assessment has been complete d for the patient 04/14/2025 11:48 AM EDT A Body Mass Index follow-up plan has been documented for the patient 04/15/2025 10:42 AM EDT documented as of this encounter Care Teams Truck Leasing Manager Relationship Specialty Start Date End Date Pcp, No [address] [place] [address] PCP - General Family Medicine 04/02/25 documented as of this encounter
--- OUTSIDE RECORDS SUMMARY | 2025-04-15 10:40 | XMS_ITS | Encounter Summary ---
Author Organization [facility] Address [address] [place] [address] Care Team Providers Care Leases And Land Supervisor Name Role Phone Pcp, No Primary Care Provider Unavailabl e Reason for Referral * - Closed Specialty Diagnoses / Procedures Referred By Contac t Referred To Contact Radiology Diagnoses Vaginal bleeding in Procedures OB US Limited Jennifer Manzano APRN, CNM [address] [facility] [address] [place] [address] Phone: tel: fax: Referral ID Status Reason Start Date Expiration Date Visits Re quested Visits Authorized [id number] Closed 04/15/2025 10/15/2026 1 1 Reason for Visit * Reason Comments office visit Pt said that she ble d through underwear and pants and that is was dark red she said she has no pain but has an little bit of cramping.She was here yesterday for US and said everything was fine. Encounter Details Date Type Department Care Team (Late st Contact Info) Description 04/15/2025 10:40 AM EDT Routine Obstetrics & Gynecology [address] [place] [address] Jennifer Manzano APRN, CNM [address] [facility] [address] [place] [address] 13 weeks gestation of (Primary Dx); Vaginal bleeding in ; Subchorionic hematoma in first trimester, fetus 1 of multiple gestation Social History Tobacco Use Types Packs/Day Years [...] Sign Reading Time Taken Comments Blood Pressure 120/80 04/15/2025 10:09 AM EDT Pulse 99 04/15/2025 10:09 AM EDT Temperature 37.2 C (99 F) 04/15/2025 10:09 AM EDT Respiratory Rate - - Oxygen Saturation 98% 04/15/2025 10:09 AM EDT Inhaled Oxygen Concentration - - Weight 104 kg (229 lb 8 oz) 04/15/2025 10:09 AM EDT Height - - Body Mass Index 39.39 04/14/2025 11:46 AM EDT documented in this [...] difficult at all 04/15/2025 10:10 AM EDT She ppard-Zo Segal documented as of this encounter Miscellaneous Notes * Progress Notes - Jennifer Manzano, DIESEL POWERPLANT MECHANIC, CNM - 04/15/2025 10:40 AM EDT Obstetrics Progress Note Chief Complaint Patient presents with office visit Pt said that she bled through underwear and pants and that is was dark red she said she has no painbut has an little bit of cramping.She was here yesterday for US and said everything was fine. Melany Soriano is a 29 y.o. at 13w6d (JEFFREY 10/15/25 by LMP=8w US) who presents for a problem OB visit. Today, she reports heavy bleeding. Bled through her underwear. Declines any clots. Reports she has had some cramping. Declines recent SIC or straining with constipation. At [facility], reports she was told she had a TATA. Never had any bleeding until the very light pink spotting Monday and then heavy bleeding this morning. She is unsure if this is related to the TATA. Shehad a NT US yesterday -- official report not back, prelim reviewed with Dr. Wilkes and normal. No indications for further bleeding. Denies painful contractions or leaking of fluid. is complicated by: Rh negative GERD - Protonix Vaginal bleeding in early - TATA noted 04/15 Objective Physical Exam Weight: 104 kg (229 lb 8 oz) Expected Total Weight Gain: 5 kg (11 lb)-9 kg (19 lb) Pregravid BMI: 39.29 BP: 120/80 SSE: External genitalia normal. cervix closed/thick. Dark blood noted in vagina. No active bleedingnoted. No discharge Assessment/Plan 29 y.o. at 13w6d presenting for ROB. Shannon was seen today for office visit. Diagnoses and all orders for this visit: 13 weeks gestation of (Primary) Vaginal bleeding in - Cancel: US Pelvis Transvaginal; Future - rho(D) immune globulin (Rhophylac) 1500 UNIT/2ML injection 1,500 Units - OB US Limited; Future Subchorionic hematoma in first trimester, fetus 1 of multiple gestation labs reviewed: O NEG // Rubella Immune // otherwise WNL NEEDS PAP Ultrasounds: Dated by LMP=8w US. NT US today WNL. Anatomy US at 20w Genetic Screening: NIPT done 04/02, pending. Immunizations: Discuss Tdap, flu, RSV recommendations next visit! Rhogam at 28 weeks. Given for bleeding 04/15 Continue vitamins. Continue Pantoprazole for persistent GERD. Discussed possible indications for bleeding, US today - TATA [id number] mm. Discussed bleeding precautions, pelvic rest, and when to be concerned. Reviewed precautions to call or present for [...] -- continue. Anatomy US at 20w. RTC: as scheduled. Jennifer Manzano APRN, CNM Obstetrics & Gynecology documented in this encounter Plan of Treatment Upcoming Encounters Date Type Department Care Team (Late st Contact Info) Description 05/05/2025 9:20 AM EDT Routine Obstetrics & Gynecology [address] [place] [address] John Wilkes MD [address] [place] [address] 05/28/2025 1:40 PM EST Routine Obstetrics & Gynecology [address] [place] [address] John Wilkes MD [address] [place] [address] 05/28/2025 1:50 PM EST Appointment [facility] Ul[facility]ound [address] [place] [address] documented as of this encounter Results * OB US Limited (04/15/2025 2:11 PM EDT) Anatomical Region Laterality Modality Pelvis Ultrasound 04/15/2025 1:43 PM EDT Impressions 04/15/2025 2:37 PM EDT The OB Ultrasound you requested has been resulted. Please navigate to the Imaging tab in [employer] for review. This message has been generated by the interface. Narrative Procedure Note Trent Ayala, DO - 04/15/2025 IMPRESSION: The OB Ultrasound you requested has been resulted. Please navigate to theImaging tab in [employer] for review. This message has been generated by theinterface. us DEBI Blue APRN OB US PROCEDURES Fi nal Result documented in this encounter Visit Diagnoses Diagnosis 13 weeks gestation of - Primary Vaginal bleeding in Subchorionic hematoma in first trimester, fetus 1 of multiple gestation Vaginal bleeding in documented in this encounter Additional Health Concerns Assessment Noted Time PHQ-9 Depression Total Score: 0 04/02/20 3:21 PM EDT A fall risk assessment has been complete d for the patient 04/15/2025 10:10 AM EDT A Body Mass Index follow-up plan has been documented for the patient 04/15/2025 3:02 PM EDT documented as of this encounter Care Teams Leases And Land Supervisor Relationship Specialty Start Date End Date Pcp, No [address] [place] [address] PCP - General Family Medicine 04/02/25 documented as of this encounter
--- OUTSIDE RECORDS SUMMARY | 2025-04-15 13:38 | XMS_ITS | Encounter Summary ---
Author Organization [facility] Address [address] [place] [address] Care Team Providers Care Family Life Counselor Name Role Phone Pcp, No Primary Care Provider Unavailabl e Reason for Referral * - Closed Specialty Diagnoses / Procedures Referred By Contac t Referred To Contact Radiology Diagnoses Vaginal bleeding in Procedures OB US Limited Jennifer Manzano APRN, CNM [address] [address] Phone: tel: fax: Referral ID Status Reason Start Date Expiration Date Visits Re quested Visits Authorized [id number] Closed 04/15/2025 10/15/2026 1 1 Reason for Visit * - Closed Specialty Diagnoses / Procedures Referred By Contac t Referred To Contact Radiology Diagnoses Vaginal bleeding in Procedures OB US Limited Jennifer Manzano APRN, CNM [address] [address] Phone: tel: fax: Referral ID Status Reason Start Date Expiration Date Visits Re quested Visits Authorized [id number] Closed 04/15/2025 10/15/2026 1 1 Encounter Details Date Type Department Care Team (Latest Contact Info) Description 04/15/2025 1:38 PM EDT - 04/15/2025 11:59 PM EDT Hospital Encounter [facility] Ul[facility] [address] [place] [address] Vaginal bleeding in Discharge Disposition: Home or Self Care Social [...] AM EDT Routine Obstetrics & Gynecology [address] [place] [address] John Wilkes MD [address] [place] [address] 05/28/2025 1:40 PM EST Routine Obstetrics & Gynecology [address] [place] [address] John Wilkes MD [address] [place] [address] 05/28/2025 1:50 PM EST Appointment [facility] Ultrasound [address] [place] [address] documented as of this encounter Procedures Procedure Name Priority Date/Time Associated Diagnosis Comments OB US LIMITED Routine 04/15/2025 2:11 PM EDT Vaginal bleeding in documented in this encounter Results * OB US Limited (04/15/2025 2:11 PM EDT) Anatomical Region Laterality Modality Pelvis Ultrasound 04/15/2025 1:43 PM EDT Impressions 04/15/2025 2:37 PM EDT The OB Ultrasound you requested has been resulted. Please navigate to the Imaging tab in [employer] for review. This message has been generated by the interface. Narrative Procedure Note Trent Ayala, DO - 04/15/2025 IMPRESSION: The OB Ultrasound you requested has been resulted. Please navigate to theImaging tab in [employer] for review. This message has been generated by theinterface. us Jennifer Manzano APRN, CNM IMG OB US PROCEDURES Fi nal Result documented in this encounter Visit Diagnoses Diagnosis Vaginal bleeding in documented in this encounter Additional Health Concerns Assessment Noted Time PHQ-9 Depression Total Score: 0 04/02/20 3:21 PM EDT A fall risk assessment has been complete d for the patient 04/15/2025 10:10 AM EDT A Body Mass Index follow-up plan has been documented for the patient 04/15/2025 3:02 PM EDT documented as of this encounter Care Teams Family Life Counselor Relationship Specialty Start Date End Date Pcp, [place] [address] PCP - General Family Medicine 04/02/25 documented as of this encounter
[2025-04-27 09:33] LABS: Microscopic, Urine URINE MICROSCOPIC (MICROSCOPIC)
[2025-04-27 09:34] LABS: Bilirubin,Urine Negative (Negative); Color,Urine YELLOW (Yellow); Glucose,Urine (UA) Negative (Negative); Ketones,Urine Negative (Negative); Leukocyte Esterase,Urine Negative (Negative); PH,Urine 6.5 (5.0-8.5); Protein,Urine TRACE (Negative); Specific Gravity, Urine 1.020 (1.005-1.030); Urine Pregnancy, HCG Qual. Positive (Negative); Urobilinogen,Urine 0.2 EU/dl (0.2)
[2025-04-27 09:42] VITALS: BP 113/64; PULSE 89; O2SAT 98
[2025-04-27 09:44] VITALS: BP 113/64; PULSE 71; RESP 15; TEMP 36.9; O2SAT 98; BMI 37.8
--- NOTE | 2025-04-27 09:45 | HMH.EDGENADL ---
Discharge Plan Disposition Patient Disposition: Home, Self-Care Referrals Follow up/Referrals: Provider,Referral, [Primary Care Provider, Medical] - See instructions Activity Restrictions/Add. Instructions Additional Instructions/Restrictions: You had a single living intrauterine consistent with your dates today with a normal heart rate with an observed subchorionic hematoma. As you know this is at a slightly increased risk of loss but at the moment no further intervention at 16 weeks can be performed and as of right now everything looks to be progressing well. Please continue to follow-up with your [facility] doctor. Additionally you did not need another dose of RhoGAM as you received this on the seventh and that should last 12 weeks before your next dose. There was no evidence of any asymptomatic bacteriuria as discussed as well. Clinical Impressions Clinical Impression: , threatened, Intrauterine , Subchorionic hematoma Instructions Patient Instructions: DI for Urinary Tract Infection (UTI), DI for Urinary Tract Infection in Children Print Language Print Language: Bengali Discharge ED Provider: Gracy Oliva General Adult HPI General Chief complaint: Urogenital-Female Stated complaint: 16 wks -heavy bleeding Time Seen by Provider: 04/27/25 09:24 History of Present Illness HPI narrative: Patient is a 29-year-old at 16 weeks gestational age presenting today with vaginal bleeding. No contractions no pain. She has a known subchorionic hematoma that was diagnosed a few weeks ago at [facility]. Her blood type is O- she received RhoGAM at that point. No loss of fluid no contractions. Did not get antibiotics recently. She is followed by [facility] primarily because of her insurance status. She states she had a large amount of blood but has since significantly slowed down. She denies any urinary symptoms. [facility] Disclaimer: The information contained in this section may have been updated after the patient was seen, as this information can be updated by other users. Social History Smoking Status: Never smoker alcohol intake: never current occupational status: other Travel in the last 8 weeks?: None ROS Obtained: Yes All systems reviewed & no additional complaints except as documented Physical Exam General General appearance: alert and in no apparent distress Respiratory Respiratory exam: Present normal lung sounds bilaterally Cardiovascular Cardiovascular exam: Present regular rate and normal rhythm Abdominal Exam Abdominal exam: Present soft; Absent distention or tenderness Neurological Exam Neurological exam: Present alert and oriented X3 Medical Decision Making Medical Records Screening: Per USPSTF and CDC recommendations, given the prevalence of disease in our region, it is our hospital?s policy to screen for HIV and viral Hepatitis for all patients aged 18 and over and those with ongoing risk factors. Lionel Inquiry Pt receiving controlled substance: No Vital Signs: 04/27/25 09:42 04/27/25 09:44 04/27/25 09:58 Temperature 98.4 F 98.4 F Temperature Source Oral Pulse Rate 89 71 Pulse Rate [Right] 71 Respiratory Rate 15 16 Blood Pressure 113/64 113/64 Blood Pressure [Right Arm] 113/64 Blood Pressure Mean [Right Arm] 80 02 Sat by Pulse Oximetry 98 98 Oxygen Delivery Method Room Air Room Air Lab Data Lab Results 04/27/25 09:25: Urine Color Yellow, Urine Appearance Clear, Urine pH 6.5, Ur Specific [place] 1.020, Urine Protein Trace, Urine Glucose (UA) Negative, Urine Ketones Negative, Urine Blood 3+ A, Urine Nitrate Negative, Urine Bilirubin Negative, Urine Urobilinogen 0.2, Ur Leukocyte Esterase Negative, Urine RBC 10-20, Urine WBC Occasional, Ur Squamous Epith Cells 20-50, Urine HCG, Qual Positive Orders (Tests/Meds): ORDERS Category Date Time Status POCUS Point of Care (ER Only) Stat Exams 04/27/25 09:24 Completed UA [Urinalysis and Microscopic] Stat Lab 04/27/25 09:25 Completed Urine , HCG Qual. Stat Lab 04/27/25 09:25 Completed Medical Decision Narrative: Patient is a 29-year-old female G1, P0 with above history and physical. She is hemodynamically stable bleeding has significantly decreased no indication for checking labs blood type etc. We know that she is O- she recently received RhoGAM 2 weeks ago which last 12 weeks she does not need another repeat dose at the moment. Bedside ultrasound confirms that baby is still alive and that there is still subchronic hematoma. Patient understands she is at slight increased risk of loss but there is no further intervention that can be done at the moment at 16 weeks. Urinalysis is pending to evaluate for possible asymptomatic bacteria. UA with blood but no evidence of infection or asymptomatic bacteruria. Procedures Miscellaneous Procedure Procedure Performed: Limited OB ultrasound Indication: Vaginal bleeding Identified structures: [-Uterus -Left adnexa -Right adnexa -Pouch of [place]r] Findings: Uterus: Definitive a single living IUP heart rate 135 consistent with dates there is evidence of a subchorionic hematoma Right adnexa: No free fluid Left adnexa: No free fluid Cul de sac: No free fluid Impression: Single living IUP consistent with dates normal heart rate subchorionic hematoma again noticed Images were saved to permanent archive The study was technically adequate CPT Transabdominal: 50015-91 This study was performed by me, and I personally interpreted all images/videos. Based on my clinical judgement, these images were adequate and did not necessitate further imaging. Critical Care Critical Care Time Critical Care Time: No
[2025-04-27 09:49] LABS: WBC,Urine Occasional #/hpf (0-3)
[2025-04-27 09:50] LABS: Squamous Epithelial Cell,Urine 20-50 #/hpf (0-5)
[2025-04-27 09:58] VITALS: BP 113/64; PULSE 71; RESP 16; TEMP 36.9; O2SAT 99
--- OUTSIDE RECORDS SUMMARY | 2025-04-27 10:12 | XMS_ITS | Encounter Summary ---
Author Organization Healthcare Address [address] [place] [address] Care Team Providers Care Mechanical Engineering Technologist Name Role Phone Pcp, No Primary Care Provider Unavailabl e Encounter Details Date Type Department Care Team ([facility] Contact Info) Description 04/15/2025 Telephone Medical Office Building Obstetrics and Gynecology [address], [address] [place] [address] John Wilkes MD [address] [place] [address] Social History Tobacco Use Types Packs/Day Years [...] as of this encounter Miscellaneous Notes * Telephone Encounter - Carmina Jose - 04/15/2025 9:59 AM EDT Called pt and asked about the bleeding. Pt states that she woke up in a pool of blood, bled throughher pants and underwear but not wearing a pad. Pt is at clinic to be seen. * Telephone Encounter - Cristina Do - 04/15/2025 8:40 AM EDT Clinical Concern/Question Reason for Call: Pt woke up this morning and is bleeding, not sure if she needs to be seen. Please call pt as soon as possible. Pt is in a panic because its a lot of blood. Best contact number: [phone] (mobile) Optimal time of day to reach caller: ANYTIME Additional comments/information from caller: Not Applicable Note: Please do not reply to this message. Follow-up communication and further actions as a result of this message need to be communicated with the patient directly, if the patient is not active onMyChart. If the patient is active on MyChart, they will receive notification of the communication/outcome via [facility]. documented in this encounter Plan of Treatment Upcoming Encounters Date Type Department Care Team (Late st Contact Info) Description 05/05/2025 9:20 AM EDT Routine Obstetrics & Gynecology [address] [facility] [place] [address] John Wilkes MD [address] [place] [address] 05/28/2025 1:40 PM EST Routine [facility] [address] [place] [address] John Wilkes MD [address] [place] [address] 05/28/2025 1:50 PM EST Appointment [facility] [address] [place] [address] documented as of this encounter Visit Diagnoses Not on filedocumented in this encounter Additional Health Concerns Assessment Noted Time PHQ-9 Depression Total Score: 0 04/02/20 3:21 PM EDT A fall risk assessment has been complete d for the patient 04/15/2025 10:10 AM EDT A Body Mass Index follow-up plan has been documented for the patient 04/15/2025 3:02 PM EDT documented as of this encounter Care Teams Mechanical Engineering Technologist Relationship Specialty Start Date End Date Pcp, No [address] [place] [address] PCP - General Family Medicine 04/02/25 documented as of this encounter
--- OUTSIDE RECORDS SUMMARY | 2025-04-27 10:12 | XMS_ITS | Encounter Summary ---
Author Organization Healthcare Address [address] [place] [address] Care Team Providers Care Sales Systems Engineer Name Role Phone Pcp, No Primary Care Provider Unavailabl e Encounter Details Date Type Department Care Team (Latest Contact Info) Description 04/14/2025 Travel Social History Tobacco Use Types Packs/Day Years [...] pleasure in doing things Not at all 04/14/2025 11:48 AM EDT Sera Rojas Feeling down, depressed, or hopeless Not at all 04/14/2025 11:48 AM EDT Sera Rojas Patient Health Questionnaire -2 Score 0 04/14/2025 11:48 AM EDT Sera Rojas * How difficult have these problems made it for you to do your work, take care of things at home, or get along with other people? Answer Date of Assessment Author Not difficult at all 04/14/2025 11:48 AM EDT Sera Choudhury documented as of this encounter Plan of Treatment Upcoming Encounters Date Type Department Care Team (Late st Contact Info) Description 05/05/2025 9:20 AM EDT Routine Obstetrics & Gynecology [address] [place] [address] John Wilkes MD [address] [place] [address] 05/28/2025 1:40 PM EST Routine Obstetrics & Gynecology [address] [place] [address] John Wilkes MD [address] [place] [address] 05/28/2025 1:50 PM EST Appointment [facility] [address] [place] [address] documented as of this encounter Visit Diagnoses [...] documented as of this encounter Care Teams Sales Systems Engineer Relationship Specialty Start Date End Date Pcp, No [address] [place] [address] PCP - General Family Medicine 04/02/25 documented as of this encounter
--- OUTSIDE RECORDS SUMMARY | 2025-04-27 10:12 | XMS_ITS | Encounter Summary ---
Author Organization [facility] Address [address] [place] [address] Care Team Providers Care Customer Energy Specialist Name Role Phone Melissa Cain Primary Care Provider [phone] Encounter Details Date Type Department Care Team (Late st Contact Info) Description 03/13/2025 Results Follow-Up [facility] OBGYN [address] [address] Marce Huizar MD [address] [facility] [address] [place], [place] [id number] Social History Tobacco Use Types Packs/Day Years [...] on file documented as of this encounter Progress Notes * Marce Huizar MD - 03/13/2025 11:15 AM EDT Rh neg precautions please documented in this encounter Plan of Treatment Not on file documented as of this encounter Visit Diagnoses Not on filedocumented in this encounter Care Teams Customer Energy Specialist Relationship Specialty Start Date End Date Melissa Cain PA [address] [facility] [id number] PCP - General Family Medicine 12/10/18 documented as of this encounter
--- OUTSIDE RECORDS SUMMARY | 2025-04-27 10:12 | XMS_ITS | Encounter Summary ---
Author Organization [facility] Address [address] [place] [address] Care Team Providers Care Aquatic Physiotherapist Name Role Phone Melissa Cain Primary Care Provider [phone] Encounter Details Date Type Department Care Team (Late st Contact Info) Description 03/13/2025 Telephone [facility] OBGYN [address] [address] Marce Huizar MD [address] [facility] [address] [place], [place] [id number] Social History Tobacco Use Types Packs/Day Years [...] on file documented as of this encounter Miscellaneous Notes * Telephone Encounter - Harriett Valerio MA - 03/13/2025 5:51 PM EDT Called and informed pt of with in normal limits lab results and informed her that her blood type isO negative and then discussed RH precautions. Patient voiced understanding. documented in this encounter Plan of Treatment Not on file documented as of this encounter Visit Diagnoses Not on filedocumented in this encounter Care Teams Aquatic Physiotherapist Relationship Specialty Start Date End Date Melissa Cain PA [address] [facility] [place] [phone] PCP - General Family Medicine 12/10/18 documented as of this encounter
--- OUTSIDE RECORDS SUMMARY | 2025-04-27 10:12 | XMS_ITS | Encounter Summary ---
Author Organization [facility] Address [address] [place] [id number] Care Team Providers Care Guest Services Assistant Name Role Phone Melissa Cain Primary Care Provider [phone] Reason for Visit * Reason Onset Date Comments BILLY RAIN-SCHEDULE NEW OB 02/10/2025 Encounter Details Date Type Department Care Team (Late st Contact Info) Description 02/10/2025 Telephone [facility] OBGYN [address] [facility] [address] [place] [address] Janice Rain, BRUSHING MACHINE OPERATOR [address] [facility] [address] [place] [address] BILLY RAIN-SCHEDULE NEW OB Social History Tobacco Use Types Packs/Day Years Used Date Smoking Tobacco: Never Comments No Sex and Gender Information Value Date Recorded Sex Assigned at Not on file Legal Sex Female 3:02 PM EDT Gender Identity Not on file Sexual Orientation Not on file documented as of this encounter Miscellaneous Notes * Telephone Encounter - Cecilia Oliva - 02/10/2025 9:16 AM EDT Hub staff attempted to follow warm transfer process and was unsuccessful Caller: Mirtha Soriano Relationship to patient: Self Best call back number: Telephone Information: Patient is needing: PATIENT CALLING TO SCHEDULE A NEW OB APPOINTMENT. PATIENT STATES HER LMP WAS 01/08/2025. PATIENT DOES VOICE A DESIRE TO SEE A FEMALE PROVIDER. PATIENT IS CURRENTLY SCHEDULED A NEW NURSING AIDE FOR AN ANNUAL EXAM FOR 03/18/2025. documented in this encounter Plan of Treatment Not on file documented as of this encounter Visit Diagnoses Not on filedocumented in this encounter Care Teams Guest Services Assistant Relationship Specialty Start Date End Date Melissa Cain PA [address] [facility] [place] [id number] PCP - General Family Medicine 12/10/18 documented as of this encounter
--- OUTSIDE RECORDS SUMMARY | 2025-04-27 10:12 | XMS_ITS | Clinical Summary ---
Author Organization [facility] Address [address] [place] [address] Care Team Providers Care National Sales Representative Name Role Phone Pcp, No Primary Care Provider Unavailabl e Allergies No known active allergies Medications MV & Min w/FA-DHA ( ADULT GUMMY/DHA/FA PO) Take 1 each by mouth daily. Active pantoprazole (Protonix) 40 MG EC tabletIndication s:Gastroesophage al reflux disease, unspecified whether esophagitis present Take 1 tablet by mouth daily before breakfast. Do not crush, chew, or split. 90 tablet 3 04/02/2025 Active BABY ASPIRIN PO Take 81 mg by mouth daily. Active Active Problems Problem Noted Date Diagnosed Date 13 weeks gestation of 04/14/2025 Assessment & Plan (04/15/2025 10:42 AM EDT): 04/14/2025 Assessment & Plan (04/15/2025 10:42 AM EDT): Gastroesophageal reflux disease 04/14/2025 Assessment & Plan (04/15/2025 10:42 AM EDT): Estimated Date of Delivery Comme nts Yes 10/15/2025 Based on last me nstrual period of 01/08/2025 (Exact Date) Encounters Date Type Department Care Team Description 04/15/2025 1:38 PM EDT - 04/15/2025 11:59 PM EDT Hospital Encounter [facility] [address] [place] [address] Vaginal bleeding in Discharge Disposition: Home or Self Care 04/15/2025 10:40 AM EDT Routine Obstetrics & Gynecology [address] [place] [address] Jennifer Manzano, RESISTOR TESTER, CNM 13 weeks gestation of (Primary Dx); Vaginal bleeding in ; Subchorionic hematoma in first trimester, fetus 1 of multiple gestation 04/15/2025 Travel 04/15/2025 Telephone Medical Office Building Obstetrics and Gynecology [address], [address] [place] [address] John Wilkes MD 04/14/2025 11:20 AM EDT Routine Obstetrics & Gynecology [address] [place] [address] John Wilkes MD 13 weeks gestation of (Primary Dx); Gastroesophageal reflux disease, unspecified whether esophagitis present; , unspecified gestational age 1004/14/2025 11:08 AM EDT - 04/14/2025 11:59 PM EDT Hospital Encounter [facility] [address] [place] [address] , unspecified gestational age Discharge Disposition: Home or Self Care 04/14/2025 Travel 04/07/2025 Results Follow-Up Obstetrics & Gynecology [address] [place] [address] John Wilkes MD 04/07/2025 Travel 04/02/2025 3:30 PM EDT Ancillary Procedure Obstetrics & Gynecology [address] [place] [address] , unspecified gestational age 0904/02/2025 3:00 PM EDT Initial Obstetrics & Gynecology [address] [place] [address] John Wilkes MD GA: 12w0d 04/02/2025 Travel 04/01/2025 Telephone Obstetrics & Gynecology [address] [place] [address] John Wilkes MD 03/31/2025 Telephone Obstetrics & Gynecology [address] [place] [address] John Wilkes MD 03/26/2025 Travel 03/18/2025 Telephone Obstetrics & Gynecology [address] [place] [address] John Wilkes MD from Last 3 Months Immunizations Immunization Administration Dates Next Due Rho (D) Immune Globulin 04/15/2025 Family History Medical History Relation Name Comments Arthritis Father Si Christie Diabetes Maternal Grandfather Si Christie Relation Name Status Comments Father Si Christie Alive Maternal Grandfather Si Christie Alive Social History Tobacco Use Types Packs/Day Years [...] on file Sexual Orientation Not on file Last Filed Vital Signs Vital Sign Reading Time Taken Comments Blood Pressure 120/80 04/15/2025 10:09 AM EDT Pulse 99 04/15/2025 10:09 AM EDT Temperature 37.2 C (99 F) 04/15/2025 10:09 AM EDT Respiratory Rate 16 04/02/2025 3:24 PM EDT Oxygen Saturation 98% 04/15/2025 10:09 AM EDT Inhaled Oxygen Concentration - - Weight 104 kg (229 lb 8 oz) 04/15/2025 10:09 AM EDT Height 162.6 cm (5' 4 ) 04/14/2025 11:46 AM EDT Body Mass Index 39.39 04/14/2025 11:46 AM EDT Plan of Treatment Upcoming Encounters Date Type Department Care Team (Late st Contact Info) Description 05/05/2025 9:20 AM EDT Routine Obstetrics & Gynecology [address] [place] [address] John Wilkes MD [address] [place] [address] 05/28/2025 1:40 PM EST Routine Obstetrics & Gynecology [address] [place] [address] John Wilkes MD [address] [place] [address] 05/28/2025 1:50 PM EST Appointment [facility] [address] [place] [address] Health Maintenance Due Date Last Done Comments [facility]-/Child/Adol SDOH Screenings 1994 [facility]-Varicella Vaccines (1 of 2 - 13+ 2-dose series) 2007 [facility]- SDOH Screenings 2012 [facility]-Adult SDOH Screenings 2012 [facility]-Hepatitis B Vaccines (1 of 3 - 19+ 3-dose series) 2013 [facility]-Pap Smear 2015 HPV Vaccines (1 - 3-dose SCD M series) 2021 [facility]-Cervical Cancer Screening 2024 [facility]-HPV/Cotest 2024 [facility]-ASTPH-73 Vaccine (2024- season) 2025 05/12/2021, 07/29/2020, 07/01/2020 [facility]-Influenza Vaccine (#1) 2025 04/04/2020 [facility]-Depression Screening 04/15/2026 025, 04/02/2025 [facility]-DTaP,Tdap,and Td Vaccine s (2 - Td or Tdap) 02/20/2030 02/21/2020 [facility]-Zoster Vaccines (1 of 2) 2044 [facility]-HIV Screening Completed 03/11/2025 [facility]-Hepatitis C Screening Completed 03/11/2025 [facility]-Obesity Intervention Completed 025, 04/14/2025, 04/02/2025 [facility]-HIB Vaccines Aged Out No longer e ligible based on patient's age to complete this topic [facility]-Hepatitis A Vaccines Aged Out No longer eligible based on patient's age to complete this topic [facility]-IPV Vaccines Aged Out No longer e ligible based on patient's age to complete this topic [facility]-Pneumococcal Vaccine: Pediatrics (0 to 5 Years) and At-Risk Patients (6 to 49 Years) Aged Out No longer eligible b ased on patient's age to complete this topic [facility]-RSV Vaccine: 60+ Years o r (No Doses Required) Completed [facility]-Rotavirus Vaccines Aged Out No lo nger eligible based on patient's age to complete this topic Procedures Procedure Name Priority Date/Time Associated Diagnosis Comments OB US LIMITED Routine 04/15/2025 2:11 PM EDT Vaginal bleeding in OB US NUCHAL TRANSLUCENCY Routine 04/14/2025 11:31 AM EDT , unspecified gestational age CHLAMYDIA TRACHOMATIS DNA BY PCR Routine 04/02/2025 3:52 PM EDT , unspecified gestational age NEISSERIA GONORRHEA DNA BY PCR Routine 04/02/2025 3:52 PM EDT , unspecified gestational age URINE CULTURE Routine 04/02/2025 3:52 PM EDT , unspecified gestational age OB US < 14 WEEKS EARLY Routine 3:28 PM EDT , unspecified gestational age DRUG ABUSE SCREEN, URINE Routine 03/11/2025 HIV 1/2 ANTIBODY/ANTIGEN SCREEN WITH REFLEX TO HIV I/II DIFFERENTIATION Routine 03/11/2025 RUBELLA ANTIBODY IGG Routine 03/11/2025 RPR WITH REFLEX TO TITER (THOSE WITH KNOWN SYPHILIS) Routine 03/11/2025 HEPATITIS B SURFACE ANTIGEN Routine 03/11/2025 HEPATITIS C ANTIBODY W/REFLEX TO HCV QUANT PCR Routine 03/11/2025 ABO/RH Routine 03/11/2025 PLATELET COUNT, BLOOD Routine 03/11/2025 HEMOGLOBIN Routine 03/11/2025 HEMATOCRIT, BLOOD Routine 03/11/2025 ANTIBODY SCREEN Routine 03/11/2025 from Last 3 Months Results * OB US Limited (04/15/2025 2:11 PM EDT) Anatomical Region Laterality Modality Pelvis Ultrasound 04/15/2025 1:43 PM EDT Impressions 04/15/2025 2:37 PM EDT The OB Ultrasound you requested has been resulted. Please navigate to the Imaging tab in [employer] for review. This message has been generated by the interface. Narrative Procedure Note Trent Ayala, DO - 04/15/2025 IMPRESSION: The OB Ultrasound you requested has been resulted. Please navigate to theImaging tab in [employer] for review. This message has been generated by [email or web address] us Jennifer Manzano APRN, DEBI IMG OB US PROCEDURES Fi nal Result * OB US Nuchal Translucency (04/14/2025 11:31 AM EDT) Anatomical Region Laterality Modality Ultrasound 04/14/2025 11:1 2 AM EDT Impressions 04/16/2025 8:41 AM EDT The OB Ultrasound you requested has been resulted. Please navigate to the Imaging tab in [employer] for review. This message has been generated by the interface. Narrative Procedure Note BaldwinFrantz Mendez MD - 04/16/2025 IMPRESSION: The OB Ultrasound you requested has been resulted. Please navigate to theImaging tab in [employer] for review. This message has been generated by theinterface. John Wilkes MD IMG OB US PROCEDURES Final Res ult * Chlamydia trachomatis DNA by PCR (04/02/2025 3:52 PM EDT) Chlamydia trachomatis DNA PCR Result Not Detected Not Detected 04/03/2025 4:21 PM EDT [facility] Urine Urine specimen obtained by clean catch procedure / Unknown Non-blood Collection / Unknown 04/02/2025 3:52 PM EDT 04/02/2025 6:47 PM EDT Narrative [facility] - 04/03/2025 4:21 PM EDT This test is performed by the [employer] m2000 instrument for Real Time PCR C. trachomatis and N. gonorrhea. This test is FDA approved for use with endocervical, vaginal, and urine specimens. This test is used for clinical purposes. It should not be regarded as invesigational or for research. The [facility] is certified under the Clinical Laboratory Improvement Amendments of 1988 (CLIA-88) as qualified to perform high complexity clinical laboratory testing. John Wilkes MD LAB MICROBIOLOGY - GENERAL ORD ERABLES Final Result [facility] [address] [place] [address] * Neisseria gonorrhea DNA by PCR (04/02/2025 3:52 PM EDT) Neisseria gonorrhea DNA PCR Result Not Detected Not Detected. 04/03/2025 4:21 PM EDT [facility] Urine Urine specimen obtained by clean catch procedure / Unknown Non-blood Collection / Unknown 04/02/2025 3:52 PM EDT 04/02/2025 6:47 PM EDT Narrative [facility] - 04/03/2025 4:21 PM EDT This test is performed by the [employer] m2000 instrument for Real Time PCR C. trachomatis and N. gonorrhea. This test is FDA approved for use with endocervical, vaginal, and urine specimens. This test is used for clinical purposes. It should not be regarded as invesigational or for research. The [facility] is certified under the Clinical Laboratory Improvement Amendments of 1988 (CLIA-88) as qualified to perform high complexity clinical laboratory testing. John Wilkes MD LAB MICROBIOLOGY - GENERAL ORD ERABLES Final Result Performing Organization Address City/[facility] [place] [address] * Urine Culture (04/02/2025 3:52 PM EDT) Culture <10,000 CFU/mL Mixed urogenital, fecal, or skin pita present. 04/03/2025 2:07 PM EDT [facility] Urine Urine specimen obtained by clean catch procedure / Unknown Non-blood Collection / Unknown 04/02/2025 3:52 PM EDT 04/02/2025 6:48 PM EDT John Wilkes MD LAB MICROBIOLOGY - GENERAL ORD ERABLES Final Result Performing Organization Address City/[facility] [place] [address] * OB US < 14 Weeks Early (04/02/2025 3:28 PM EDT) Anatomical Region Laterality Modality Body Ultrasound 04/07/2025 12:1 2 PM EDT Impressions 04/07/2025 12:16 PM EDT The OB Ultrasound you requested has been resulted. Please navigate to the Imaging tab in [employer] for review. This message has been generated by the interface. Narrative Procedure Note John Wilkes MD - 04/07/2025 IMPRESSION: The OB Ultrasound you requested has been resulted. Please navigate to theImaging tab in [employer] for review. This message has been generated by [email or web address]. John Wilkes MD IMG OB US PROCEDURES Final Res ult * HIV 1 & 2 Antibody/Antigen Screen (03/11/2025) External HIV 1/2 Ab/Ag None Detected Blood Venous blood specimen / Unknown Result [facility] Provider LAB BLOOD ORDERABLES Final R esult * Hepatitis C Antibody w/Reflex to HCV Quant PCR (03/11/2025) Hepatitis C Antibody Negative Negative Blood Venous blood specimen / Unknown Result [facility] Provider LAB BLOOD ORDERABLES Final R esult * Drug Abuse Screen, Urine (03/11/2025) Amphetamine Screen Urine Negative Cutoff: 500 ng/mL Urine Urine specimen obtained by clean catch procedure / Unknown Result [facility] Provider LAB URINE ORDERABLES Final R esult * ABO/Rh (03/11/2025) ABO Grouping O External Rh Factor Negative Blood Venous blood specimen / Unknown Result [facility] Provider LAB BLOOD BANK TEST ORDERABL ES Final Result * Rubella Antibody IgG (03/11/2025) External Rubella IGG Quantitation Positive Blood Venous blood specimen / Unknown Result [facility] Provider LAB BLOOD ORDERABLES Final R esult * RPR With Reflex to Titer (Those With Known Syphilis) (03/11/2025) Rapid Plasma Reagin Nonreactive Non Reactive Blood Venous blood specimen / Unknown Result [facility] Provider LAB BLOOD ORDERABLES Final R esult * Hepatitis B Surface Antigen (03/11/2025) External Hepatitis B Surface Antigen (HBSAg) non reactive Blood Venous blood specimen / Unknown Result [facility] LAB BLOOD ORDERABLES Final R esult * Platelet Count, Blood (03/11/2025) External Platelet Count (Plt) 284 Blood Venous blood specimen / Unknown Result [facility] LAB BLOOD ORDERABLES Final R esult * Hemoglobin, Blood (03/11/2025) External Hemoglobin (Hgb) 13.30 Blood Venous blood specimen / Unknown Result [facility] LAB BLOOD ORDERABLES Final R esult * Hematocrit, Blood (03/11/2025) External Hematocrit (Hct) 40.4 Blood Venous blood specimen / Unknown Result [facility] LAB BLOOD ORDERABLES Final R esult * Antibody Screen (03/11/2025) External Antibody Screen Negative Blood Venous blood specimen / Unknown Result [facility] LAB BLOOD BANK TEST ORDERABL ES Final Result from Last 3 Months Insurance ANTHEM Care Teams National Sales Representative Relationship Specialty Start Date End Date Pcp, [place] [address] [place] [address] PCP - General Family Medicine 04/02/25
--- OUTSIDE RECORDS SUMMARY | 2025-04-27 10:12 | XMS_ITS | Encounter Summary ---
Author Organization [facility] Address [address] [place] [address] Care Team Providers Care Robotic Weld Technician Name Role Phone Melissa Cain Primary Care Provider [phone] Encounter Details Date Type Department Care Team (Latest Contact Info) Description 03/11/2025 Travel Social History Tobacco Use Types Packs/Day [...] on filedocumented in this encounter Care Teams Robotic Weld Technician Relationship Specialty Start Date End Date Melissa Cain PA [address] [address] PCP - General Family Medicine 12/10/18 documented as of this encounter
--- OUTSIDE RECORDS SUMMARY | 2025-04-27 10:12 | XMS_ITS | Encounter Summary ---
Author Organization Healthcare Address [address] [place] [address] Care Team Providers Care Credit Controller Name Role Phone Pcp, No Primary Care Provider Unavailabl e Encounter Details Date Type Department Care Team (Latest Contact Info) Description 04/15/2025 Travel Social History Tobacco Use Types Packs/Day [...] at all 04/15/2025 10:10 AM EDT She Zo Berry documented as of this encounter Plan of Treatment Upcoming Encounters Date Type Department Care Team (Late st Contact Info) Description 05/05/2025 9:20 AM EDT Routine Obstetrics & Gynecology [address] [place] [address] John Wilkes MD [address] [place] [address] 05/28/2025 1:40 PM EST Routine Obstetrics & Gynecology [facility] [place] [address] John Wilkes MD [address] [place] [address] 05/28/2025 1:50 PM EST Appointment [facility] [address] [place] [address] documented as of this encounter Visit Diagnoses [...] documented as of this encounter Care Teams Credit Controller Relationship Specialty Start Date End Date Pcp, No [address] [place] [address] PCP - General Family Medicine 04/02/25 documented as of this encounter
--- OUTSIDE RECORDS SUMMARY | 2025-04-27 10:13 | XMS_ITS | Clinical Summary ---
Author Organization [facility] Address [address] [place] [address] Care Team Providers Care Superintendent Factory Name Role Phone Melissa Cain Primary Care Provider [phone] Allergies No known active allergies Medications GUMMY VITAMIN Chew 1 each Daily. Active Active Problems Problem Noted Date Diagnosed Date 8 weeks gestation of 03/11/2025 Multigravida in first trimester 03/11/2025 Estimated Date of Delivery Comme nts Yes 10/15/2025 Based on last me nstrual period of 01/08/2025 Encounters Date Type Department Care Team Description 03/13/2025 Telephone [facility] OBGYN [address] [address] Jenna Huizar MD 03/13/2025 Results Follow-Up [facility] OBGYN [address] [address] Jenna Huizar MD 03/11/2025 8:30 AM EDT Initial [facility] OBGYN [address] [facility] [address] [place] [address] Jenna Huizar MD GA: 8w6d 03/11/2025 8:00 AM EDT Ancillary Procedure [facility] OBGYN [address] [facility] [address] [place] [address] First trimester 03/11/2025 Travel 02/10/2025 Telephone [facility] [address] [facility] [address] [place] [address] Janice Rain APRN [employer] NEW OB from Last 3 Months Family History Medical History Relation Name Comments No Known Problems Father No Known Problems Mother Diabetes Paternal Grandfather Relation Name Status Comments Father Alive Mother Alive Paternal Grandfather Social History Tobacco Use Types Packs/Day Years [...] Pressure 112/62 03/11/2025 8:43 AM EDT Pulse 70 12/10/2018 3:09 PM EDT Temperature 37.1 C (98.7 F) 12/10/2018 3:09 PM EDT Respiratory Rate 15 12/10/2018 3:09 PM EDT Oxygen Saturation 98% 12/10/2018 3:09 PM EDT Inhaled Oxygen Concentration - - Weight 104 kg (229 lb 3.2 oz) 03/11/2025 8:43 AM EDT Height 162.6 cm (5' 4 ) 12/10/2018 3:09 PM EDT Body Mass Index 39.34 12/10/2018 3:09 PM EDT Plan of Treatment Health Maintenance Due Date Last Done Comments Annual Gynecologic Pelvic an d Breast Exam 1994 PAP SMEAR 2015 ANNUAL PHYSICAL 12/10/2018 INFLUENZA VACCINE 02/07/2025 04/04/2020 TDAP/TD VACCINES (2 - Td or Tdap) 02/20/2030 020 HEPATITIS C SCREENING Completed 03/11/2025 Pneumococcal Vaccine 0-49 Aged Out No longer eligible based on patient's age to complete this topic RSV Vaccine - Adults (No Dos es Required) Completed Procedures Procedure Name Priority Date/Time Associated Diagnosis Comments URINALYSIS AND MICROSCOPIC Routine 03/11/2025 9:25 AM EDT Multigravida in first trimester 8 weeks gestation of RUBEOLA ANTIBODY IGG Routine 03/11/2025 9:25 AM EDT ~MICROSCOPIC EXAMINATION Routine 03/11/2025 9:25 AM EDT URINE DRUG SCREEN Routine 03/11/2025 9:2 5 AM EDT Multigravida in first trimester 8 weeks gestation of HIV-1/O/2 ANTIGEN/ANTIBODY Routine 03/11/2025 9:25 AM EDT Multigravida in first trimester 8 weeks gestation of OBSTETRIC PANEL Routine 03/11/2025 9:25 AM EDT Multigravida in first trimester 8 weeks gestation of CHLAMYDIA TRACHOMATIS, NEISSERIA GONORRHOEAE, PCR Routine 03/11/2025 9:25 AM EDT Multigravida in first trimester 8 weeks gestation of URINE CULTURE Routine 03/11/2025 9:25 AM EDT Multigravida in first trimester 8 weeks gestation of POCT URINALYSIS DIPSTICK, MANUAL Routine 03/11/2025 8:59 AM EDT Multigravida in first trimester 8 weeks gestation of US OB TRANSVAGINAL Routine 03/11/2025 8: 13 AM EDT First trimester from Last 3 Months Results * Chlamydia trachomatis, Neisseria gonorrhoeae, PCR - Urine, Urine, Clean Catch (03/11/2025 9:25 AM EDT) Chlamydia trachomatis, BILLIE Negative Negative [facility] Neisseria gonorrhoeae, BILLIE Negative Negative [facility] Urine Urine specimen obtained by clean catch procedure / Unknown 03/11/2025 9:25 AM EDT 03/11/2025 Comment:[facility]- [id number] Narrative [facility] - 03/13/2025 8:11 AM EDT Performed at: [address] [place] [phone] Wheel Worker: Erum Montes De Oca MD, Phone: [phone] Jenna Huizar MD MICROBIOLOGY - GENERA L ORDERABLES Final Result Performing Organization Address City/[facility]/ZIP Co de Phone Number [facility] [address] [place] [address], [facility] [address] [place] [address], [place] [phone] * (ABNORMAL) Microscopic Examination - (03/11/2025 9:25 AM EDT) Pathologist [facility] WBC, UA 0-2 /HPF [facility] Comment:REFERENCE [...] Seen 03/11/2025 9:25 AM EDT 03/11/2025 Narrative [facility] - 03/12/2025 3:35 AM EDT Performed at: [address] [place] [phone] Wheel Worker: Maged Evangelista MD, Phone: [phone] Jenna Huizar MD URINE ORDERABLES Lindsay l Result Performing Organization Address City/[facility]/ZIP Co de Phone Number [facility] (AMBULATORY) [address] [place] [address], [place] [phone] [facility] [address] [place] [address], [place] [phone] * HIV-1 / O / 2 Ag / Antibody (03/11/2025 9:25 AM EDT) Pathologist [facility] HIV Screen 4th Gen w/RFX (Reference) Non Reactive Non Reactive [facility] Comment: HIV-1/HIV-2 antibodies and HIV-1 p24 antigen were NOT detected. There is no laboratory evidence of HIV infection. HIV Negative Blood 03/11/2025 9:25 AM EDT 03/11/2025 Narrative [facility] (AMBULATORY) - 03/12/2025 7:09 AM EDT Performed at: - [address] [phone] Wheel Worker: Nitin Lind PhD, Phone: [phone] Jenna Huizar MD LAB BLOOD ORDERABLES Final Result [facility] [address] [place] [address], [place] [phone] [facility] [address] [place] [address], [place] [phone] * Urine Drug Screen - Urine, Clean Catch (03/11/2025 9:25 AM EDT) [facility] Amphetamine, Urine Qual Negative Cutoff=10 00 ng/mL [...] is inconsistent with an expected outcome. Email: Urine Urine specimen obtained by clean catch procedure / Unknown 03/11/2025 9:25 AM EDT 03/11/2025 [facility] (AMBULATORY) - 03/12/2025 8:35 PM EDT Performed at: [address] [place] [phone] Wheel Worker: Komal Arceo PhD, Phone: [phone] Jenna Huizar MD URINE ORDERABLES Lindsay clarke Result [facility] [place] ([facility]BULATORY) [address] [place] [address], [facility] [address] [place] [address], * Rubeola Antibody IgG (03/11/2025 9:25 AM EDT) Rubeola IgG 236.0 Immune >16.4 AU/mL [facility] Comment: Negative <13.5 Equivocal 13.5 - 16.4 Positive >16.4 Presence of antibodies to Rubeola is presumptive evidence of immunity except when acute infection is suspected. 03/11/2025 9:25 AM EDT 03/11/2025 [facility] (AMBULATORY) - 03/12/2025 8:11 AM EDT Performed at: 01 - [facility] [address] [facility], [place], [place] [id number] Wheel Worker: Nitin Lind PhD, Phone: [phone] Jenna Huizar MD LAB BLOOD ORDERABLES Final Result [facility] ([facility]UL[facility]ORY) [address] [place] [address], [facility] [address] [place] [address], * (ABNORMAL) Obstetric Panel (03/11/2025 9:25 AM EDT) Hepatitis B Surface Ag Negative Negative [facility] [...] 03/11/2025 9:25 AM EDT 03/11/2025 Narrative [facility] (AMBULATORY) - 03/12/2025 8:11 AM EDT Performed at: - [address] [id number] Wheel Worker: Nitin Lind PhD, Phone: [phone] Jenna Huizar MD LAB BLOOD ORDERABLES Final Result [facility] (AMBULATORY) [address] [place] [address], [facility] [address] [place] [address], * (ABNORMAL) Urinalysis With Microscopic - Urine, Clean Catch (03/11/2025 9:25 AM EDT) [facility] Specific [place], UA 1.021 1.005 - 1.030 [facility] pH, UA 6.5 5.0 - 8.0 [...] - 03/12/2025 3:35 AM EDT Performed at: [address] [place] [phone] Wheel Worker: Maged Evangelista MD, Phone: [phone] Jenna Huizar MD URINE ORDERABLES Lindsay l Result Performing Organization Address [facility] Co de Phone Number [facility] (AMBULATORY) [address] [place] [address], [facility] [address] [place] [id number], [place] [phone] * Urine Culture - Urine, Urine, Clean Catch (03/11/2025 9:25 AM EDT) [facility] Urine Culture Final report [facility] Result 1 No growth [facility] Urine Urine specimen obtained by clean catch procedure / Unknown 03/11/2025 9:25 AM EDT 03/11/2025 Comment:MATHIEU CD- [id number] Narrative [facility] (AMBULATORY) - 03/13/2025 3:35 AM EDT Performed at: - [facility] [address] [place] [phone] Wheel Worker: Nitin Lind PhD, Phone: [phone] Jenna Huizar MD MICROBIOLOGY - GENERA L ORDERABLES Final Result Performing Organization Address [facility] Co de Phone Number [facility] [address] [place] [address], [facility] [address] [place] [address], [place] [phone] * POC Urinalysis Dipstick (03/11/2025 8:59 AM EDT) Color Yellow Yellow, Straw, Dark Yellow, Rufina [facility] Clarity, UA Clear Clear [facility] Glucose, UA Negative Negative mg/dL [facility] Bilirubin Negative Negative [facility] Ketones, UA Negative Negative [facility] Specific [place] 1.020 1.005 - 1.030 [facility] Blood, UA Negative Negative [facility] pH, Urine 6.0 5.0 - 8.0 [facility] Protein, POC Negative Negative mg/dL [facility] Urobilinogen, UA 0.2 E.U./dL Normal, 0.2 E.U./dL [facility] Leukocytes Negative Negative [facility] Nitrite, UA Negative Negative [facility] Urine 03/11/2025 8:59 AM EDT Jenna Huizar MD POINT OF CARE TEST OR DERABLES Final Result [facility]
[address] [place] [address], * [place] Ob Transvaginal (03/11/2025 8:13 AM EDT) Anatomical Region Laterality Modality Body Ultrasound 03/11/2025 8:58 AM EDT Narrative 03/11/2025 4:50 PM EDT PAT NAME: MIRTHA REYES MED REC#: [id number] DA: 1995 PAT GEND: F PAT TYPE: O EXAM VALERIE: [id number] REF PHYS JENNA HUIZAR Indication ======== Dating Comparison Studies There [...] Too early to evaluate. Amniotic fluid normal. [id number] TATA. Maternal Structures Uterus / Cervix Uterus: [...] activity and biometry consistent with clinical dates Proof Clerk: Kinga Villatoro RDMS Physician: Jenna Huizar MD, FACOG Electronically signed by: Jenna Huizar MD, FACOG at: 16:50 Procedure Note Jenna Huizar MD - 03/11/2025 PAT NAME: MIRTHA REYES MED REC#: [id number] DA: 1995 PAT GEND: F PAT TYPE: O EXAM VALERIE: [id number] REF PHYS JENNA HUIZAR Indication ======== Dating Comparison Studies There [...] GA8 w + 6 d Assigned JEFFREY:10/15/2025 d Biometry Standard NIC914 bpm CRL22.1 mm 8w 6d 65% [place] General Evaluation Cardiac activity present. Placenta Too early to evaluate. Amniotic fluid normal. [id number] TATA. Maternal Structures Uterus / Cervix Uterus:Visualized [...] cardiac activity andbiometry consistent with clinical dates Proof Clerk: Kinga Villatoro RDMS Physician: Jenna Huizar MD, FACOG Electronically signed by: Jenna Huizar MD, FACOG at: 6:50 us Jenna Huizar MD IMG US ORDERABLES Fin al Result from Last 3 Months Insurance 2019 [place] [id number] [facility] PPO Care Teams Superintendent Factory Relationship Specialty Start Date End Date Melissa Cain [place] [address] [place], [place] [address] PCP - General Family Medicine 12/10/18
--- OUTSIDE RECORDS SUMMARY | 2025-04-27 10:13 | XMS_ITS | Encounter Summary ---
Author Organization Healthcare Address [address] [place] [address] Care Team Providers Care Patient Service Coordinator Name Role Phone Pcp, No Primary Care Provider Unavailabl e Encounter Details Date Type Department Care Team (Late st Contact Info) Description 04/07/2025 Results Follow-Up Obstetrics & Gynecology [address] [place] [address] John Wilkes MD [address] [place] [address] Social History Tobacco Use Types [...] AM EDT Routine Obstetrics & Gynecology [address] [place] [address] John Wilkes MD [address] [place] [address] 05/28/2025 1:40 PM EST Routine [facility] [address] [place] [address] John Wilkes MD [address] [place] [address] 05/28/2025 1:50 PM EST Appointment [facility] [address] [place] [address] documented as of this encounter Visit Diagnoses [...] documented as of this encounter Care Teams Patient Service Coordinator Relationship Specialty Start Date End Date Pcp, No [address] [place] [address] PCP - General Family Medicine 04/02/25 documented as of this encounter
--- OUTSIDE RECORDS SUMMARY | 2025-04-27 10:13 | XMS_ITS | Encounter Summary ---
Author Organization Healthcare Address [address] [place] [address] Care Team Providers Care Ground School Instructor Name Role Phone Pcp, No Primary Care Provider Unavailabl e Encounter Details Date Type Department Care Team (Latest Contact Info) Description 04/02/2025 Travel Social History Tobacco Use Types Packs/Day [...] Not at all 04/02/2025 3:21 PM EDT David, Vj Diamond Moving or speaking so slowly that other [...] Routine Obstetrics & Gynecology [address] [place] [address] John Wilkes MD [address] [place] [address] 05/28/2025 1:40 PM EST Routine Obstetrics & Gynecology [address] [place] [address] John Wilkes MD [address] [place] [address] 05/28/2025 1:50 PM EST Appointment [facility] [address] [place] [address] documented as of this encounter Visit Diagnoses [...] documented as of this encounter Care Teams Ground School Instructor Relationship Specialty Start Date End Date Pcp, No [address] [place] [address] PCP - General Family Medicine 04/02/25 documented as of this encounter
--- OUTSIDE RECORDS SUMMARY | 2025-04-27 10:13 | XMS_ITS | Encounter Summary ---
Author Organization [facility] Address [address] [place] [address] Care Team Providers Care Hog Driver Name Role Phone Unavailable Primary Care Provider Unavailabl e Encounter Details Date Type Department Care Team (Late st Contact Info) Description 03/31/2025 Telephone Obstetrics & Gynecology [address] [place] [address] John Wilkes MD [address] [place] [address] Social History Tobacco Use Types Packs/Day Years Used Date Smoking Tobacco: Never Assessed Comments Unknown Sex and Gender Information Value Date Recorded Sex Assigned at Not on file Legal Sex Female 3:16 PM EDT Gender Identity Not on file Sexual Orientation Not on file documented as of this encounter Miscellaneous Notes * Telephone Encounter - Giana Jose - 03/31/2025 8:39 AM EDT Lm on to confirm if pt has any questions or concerns regarding appt 04/02 documented in this encounter Plan of Treatment Upcoming Encounters Date Type Department Care Team (Late st Contact Info) Description 05/05/2025 9:20 AM EDT Routine Obstetrics & Gynecology [address] [place] [address] John Wilkes MD [address] [place] [address] 05/28/2025 1:40 PM EST Routine Obstetrics & Gynecology [address] [place] [address] John Wilkes MD [address] [place] [address] 05/28/2025 1:50 PM EST Appointment [facility] [address] [place] [address] documented as of this encounter Visit Diagnoses Not on filedocumented in this encounter
--- OUTSIDE RECORDS SUMMARY | 2025-04-27 10:13 | XMS_ITS | Encounter Summary ---
Author Organization Healthcare Address [address] [place] [address] Care Team Providers Care Ordnance Equipment Worker Name Role Phone Pcp, No Primary Care Provider Unavailabl e Encounter Details Date Type Department Care Team (Latest Contact Info) Description 04/07/2025 Travel Social History Tobacco Use Types Packs/Day [...] AM EDT Routine Obstetrics & Gynecology [address] [place] [address] John Wilkes MD [address] [place] [address] 05/28/2025 1:40 PM EST Routine Obstetrics & Gynecology [address] [place] [address] John Wilkes MD [address] [place] [address] 05/28/2025 1:50 PM EST Appointment [facility] [address] [place] [address] documented as of this encounter Visit Diagnoses [...] documented as of this encounter Care Teams Ordnance Equipment Worker Relationship Specialty Start Date End Date Pcp, No [address] [place] [address] PCP - General Family Medicine 04/02/25 documented as of this encounter
--- OUTSIDE RECORDS SUMMARY | 2025-04-27 10:13 | XMS_ITS | Encounter Summary ---
Author Organization Healthcare Address [address] [place] [address] Care Team Providers Care Hay Baler Name Role Phone Unavailable Primary Care Provider Unavailabl e Encounter Details Date Type Department Care Team (Late st Contact Info) Description 04/01/2025 Telephone Obstetrics & Gynecology [address] [place] [address] John Wilkes MD [address] [place] [address] Social History Tobacco Use Types Packs/Day Years Used Date Smoking Tobacco: Never Assessed PHQ-2 Answer Date Recorded Patient Health Questionnaire-2 Score 0 04/02/2025 PHQ-9 Answer Date Recorded Patient Health Questionnaire-9 Score 0 04/02/2025 Comments Unknown Sex and Gender Information Value Date Recorded Sex Assigned at Not on file Legal Sex Female 3:16 PM EDT Gender Identity Not on file Sexual Orientation Not on file documented as of this encounter Miscellaneous Notes * Telephone Encounter - Giana Jose - 04/01/2025 10:28 AM EDT tt PT to confirm if she had any questions or concerns for appt 04/02 ZMT documented in this encounter Plan of Treatment Upcoming Encounters Date Type Department Care Team (Late st Contact Info) Description 05/05/2025 9:20 AM EDT Routine Obstetrics & Gynecology [address] [place] [address] John Wilkes MD [address] [place] [address] 05/28/2025 1:40 PM EST Routine Obstetrics & Gynecology [address] [place] [address] John Wilkes MD [address] [place] [address] 05/28/2025 1:50 PM EST Appointment [facility] [address] [place] [address] documented as of this encounter Visit Diagnoses Not on filedocumented in this encounter
--- OUTSIDE RECORDS SUMMARY | 2025-04-27 10:13 | XMS_ITS | Encounter Summary ---
Author Organization [facility] Address [address] [place] [address] Care Team Providers Care Thread Cutter Tender Name Role Phone Unavailable Primary Care Provider Unavailabl e Encounter Details Date Type Department Care Team (Latest Contact Info) Description 03/26/2025 Travel Social History Tobacco Use Types Packs/Day [...] AM EDT Routine Obstetrics & Gynecology [address] [place] [address] John Wilkes MD [address] [place] [address] 05/28/2025 1:40 PM EST Routine Obstetrics & Gynecology [address] [place] [address] John Wilkes MD [address] [place] [address] 05/28/2025 1:50 PM EST Appointment [facility] [address] [place] [address] documented as of this encounter Visit Diagnoses Not on filedocumented in this encounter
--- OUTSIDE RECORDS SUMMARY | 2025-04-27 10:13 | XMS_ITS | Encounter Summary ---
Author Organization [facility] Address [address] [place] [address] Care Team Providers Care Spinneret Cleaner Name Role Phone Unavailable Primary Care Provider Unavailabl e Encounter Details Date Type Department Care Team (Late st Contact Info) Description 03/18/2025 Telephone Obstetrics & Gynecology [address] [place] [address] John Wilkes MD [address] [place] [address] Social History Tobacco Use Types Packs/Day Years Used Date Smoking Tobacco: Never Assessed Comments Unknown Sex and Gender Information Value Date Recorded Sex Assigned at Not on file Legal Sex Female 3:16 PM EDT Gender Identity Not on file Sexual Orientation Not on file documented as of this encounter Miscellaneous Notes * Telephone Encounter - Giana Jose - 03/18/2025 2:35 PM EDT 03/18/25 scheduled appt per WorkQ- pt said LMP is actually 7/2 ZMT documented in this encounter Plan of Treatment Upcoming Encounters Date Type Department Care Team (Late st Contact Info) Description 05/05/2025 9:20 AM EDT Routine Obstetrics & Gynecology [address] [place] [address] John Wilkes MD [address] [place] [address] 05/28/2025 1:40 PM EST Routine Obstetrics & Gynecology [address] [place] [address] John Wilkes MD [address] [place] [address] 05/28/2025 1:50 PM EST Appointment [facility] [address] [place] [address] documented as of this encounter Visit Diagnoses Not on filedocumented in this encounter
== END 2025-04-27 10:12 | disposition home or self-care (01) ==
LOC: ER 10:10
PROVIDERS: Emergency Provider Student in an Organized Health Care Education/Training Program
DX: O20.0 Threatened abortion (principal); O41 Other disorders of amniotic fluid and membranes; Z3A.16 16 weeks gestation of pregnancy
CPT/HCPCS: 81001; 81025; 99283; 99284